=== PATIENT | female | born 1985 | race Caucasian/White ===

== ENCOUNTER 2017-12-09 16:27 | Emergency (ER) | payer MEDICARE ==
[2017-12-09] MEDS ORDERED: PROMETHAZINE 12.5 MG TABLET. PO (17:00)
[2017-12-09 17:18] LABS: URINE HCG POC HCG NEGATIVE (Negative)
[2017-12-09 17:24] LABS: BARBITURATES NEG (NEG); BENZODIAZEPINES POS (NEG); CANNABINOIDS NEG (NEG); COCAINE NEG (NEG); METHADONE POS (NEG); OPIATES NEG (NEG); PHENCYCLIDINE NEG (NEG)
[2017-12-09 17:25] LABS: BILIRUBIN,URINE NEGATIVE (NEG); CLARITY,URINE CLEAR; COLOR,URINE YELLOW; GLUCOSE,URINE >=1000 mg/dL (NEG); NITRITE,URINE NEGATIVE (NEG); PROTEIN,URINE NEGATIVE (NEG-TRACE)
[2017-12-09 17:27] LABS: AMPHETAMINE/METHAMPHETAMINE NEG (NEG); ETHANOL, URINE NEG (NEG)
[2017-12-09 17:31] LABS: AMORPHOUS SEDIMENT,UR PRESENT /HPF; BACTERIA,URINE MODERATE /HPF (0-FEW); RBC,URINE 0 /HPF (0-2); SQUAMOUS EPITHELIAL CELL,UR FEW /LPF; WBC,URINE 20-40 /HPF (0-4)
[2017-12-09] MEDS: PROMETHAZINE IM 25 MG/ML VIAL IM (17:45)
[2017-12-09 18:06] LABS: ADD MAN DIFF? NO
[2017-12-09] MEDS: IV NORMAL SALINE 1000ML BAG 1,000 ML IV ×2 (18:07→19:58)
[2017-12-09 18:08] LABS: BASO % 0 % (0-3); EOS % 1 % (0-3); HEMATOCRIT 43.2 % (36.0-47.0); HEMOGLOBIN 14.5 g/dL (12.0-15.5); LYMPH # 1.4 x10^3/uL (1.0-4.8); LYMPH % 19 % (24-48); MEAN CORPUSCULAR HEMOGLOBIN 27 pg (25-35); MEAN CORPUSCULAR HGB CONC 34 g/dL (31-37); MEAN CORPUSCULAR VOLUME 81 fL (79-100); MONO # 0.5 x10^3/uL (0.0-1.1); MONO % 7 % (0-9); NEUT # 5.5 x10^3uL (1.8-7.7); NEUT % 74 % (31-73); PLATELET COUNT 189 x10^3/uL (140-400); RED BLOOD COUNT 5.36 x10^6/uL (3.50-5.40); RED CELL DISTRIBUTION WIDTH 13.5 % (11.5-14.5); WHITE BLOOD COUNT 7.4 x10^3/uL (4.0-11.0)
[2017-12-09 18:27] LABS: ANION GAP 13 (6-14); BLOOD UREA NITROGEN 7 mg/dL (7-20); BUN/CREATININE RATIO 8 (6-20); CALCIUM 9.1 mg/dL (8.5-10.1); CARBON DIOXIDE 23 mmol/L (21-32); CHLORIDE 92 mmol/L (98-107); CREATININE 0.9 mg/dL (0.6-1.0); GFR 72.1; GLUCOSE 462 mg/dL (70-99); POTASSIUM 3.8 mmol/L (3.5-5.1); SODIUM 128 mmol/L (136-145)
[2017-12-09 18:32] LABS: ALBUMIN 3.1 g/dL (3.4-5.0); ALBUMIN/GLOBULIN RATIO 0.7 (1.0-1.7); ALK PHOS 192 U/L (46-116); ALT (SGPT) 106 U/L (14-59); AST (SGOT) 89 U/L (15-37); TOTAL BILIRUBIN 0.6 mg/dL (0.2-1.0); TOTAL PROTEIN 7.7 g/dL (6.4-8.2)
[2017-12-09] MEDS: ACETAMINOPHEN 500 MG TABLET PO (20:09)
[2017-12-09] MEDS: INSULIN REGULAR 100 UNIT/ML 3ML VIAL. IV (20:13)
== END 2017-12-09 21:22 | disposition home or self-care (01) ==
LOC: ER 21:22
DX: G62.9 Polyneuropathy, unspecified (principal); R11.0 Nausea; E11.9 Type 2 diabetes mellitus without complications; J45.909 Unspecified asthma, uncomplicated; K21.9 Gastro-esophageal reflux disease without esophagitis; G43.909 Migraine, unspecified, not intractable, without status migrainosus; F43.10 Post-traumatic stress disorder, unspecified; Z87.820 Personal history of traumatic brain injury; F17.200 Nicotine dependence, unspecified, uncomplicated; Z88.0 Allergy status to penicillin; Z88.6 Allergy status to analgesic agent
CPT/HCPCS: 36415; 72100; 80053; 80307; 81001; 81025; 85025; 87086; 96372; 96374; 99285-25; J1815; J2550; J7030

== ENCOUNTER 2018-09-13 20:05 | Emergency (ER) | payer SELFPAY ==
[~2018-09-13] VITALS: Ht 167.6 cm; Wt 74.8 kg
[2018-09-13 20:53] VITALS: BP 128/65
[2018-09-13 20:59] LABS: BILIRUBIN,URINE NEGATIVE (NEG); CLARITY,URINE CLEAR; COLOR,URINE YELLOW; NITRITE,URINE NEGATIVE (NEG); PROTEIN,URINE NEGATIVE (NEG-TRACE); UROBILINOGEN,URINE 0.2 mg/dL (0.2 mg/dL)
[2018-09-13 21:05] LABS: SQUAMOUS EPITHELIAL CELL,UR MANY /LPF
[2018-09-13 21:06] LABS: BACTERIA,URINE FEW /HPF (0-FEW); RBC,URINE OCC /HPF (0-2)
[2018-09-13] MEDS ORDERED: SULF1TAB24 PO (21:58)
[2018-09-13] MEDS ORDERED: ONDA4TAB7 PO (21:58)
--- NOTE | 2018-09-13 21:59 | PHYS DOC ---
Past Medical History Past Medical History: Anxiety, Asthma, Diabetes-Type II, GERD, Migraines, UTI Additional Past Medical Histor: Personality disorder, TBI, Broken neck, PTSD (CLAUDIA DOBBINS APRN) Past Surgical History: Hysterectomy, Tonsillectomy Additional Past Surgical Histo: Brain surgery, oral surgery, T&A, vag lesion removed (CLAUDIA DOBBINS APRN) Alcohol Use: None Drug Use: Other Social History Narrative: RECOVERING METH USER (CLAUDIA DOBBINS APRN) Adult General Chief Complaint Chief Complaint: FLANK PAIN HPI HPI Patient is a 33 year old female with history of diabetes2, anxiety, arthritis, who presents to the ED today complaining of dysuria, sharp intermittent 7 out of 10 chronic low back pain for 4 days. Patient denies any fever, she states she's had a couple episodes of vomiting. She is currently at [facility] [place]. (CLAUDIA DOBBINS APRN) Review of Systems Review of Systems Constitutional: Denies fever or chills [] Eyes: Denies change in visual acuity, redness, or eye pain [] HENT: Denies nasal congestion or sore throat [] Respiratory: Denies cough or shortness of breath [] Cardiovascular: No additional information not addressed in HPI [] GI: Reports nausea and vomiting. Denies abdominal pain, bloody stools or diarrhea [] : Reports dysuria, denies hematuria Musculoskeletal: Reports chronic low back pain Integument: Denies rash or skin lesions [] Neurologic: Denies headache, focal weakness or sensory changes [] All other systems were reviewed and found to be within normal limits, except as documented in this note. (CLAUDIA DOBBINS APRN) Allergies Allergies Allergies Coded Allergies Type Severity Reaction Last Updated Verified Penicillins Allergy Intermediate 12/09/17 Yes adhesive Allergy Intermediate 12/09/17 Yes ketorolac Allergy Intermediate 12/09/17 Yes metoclopramide Allergy Intermediate 12/09/17 Yes ondansetron Allergy Intermediate 12/09/17 Yes prochlorperazine Allergy Intermediate 12/09/17 Yes (DEAN FREEDMAN MD) Physical Exam Physical Exam Constitutional: Well developed, well nourished, no acute distress, non-toxic appearance. [] HENT: Normocephalic, atraumatic, bilateral external ears normal, oropharynx moist, no oral exudates, nose normal. [] Eyes: PERRLA, EOMI, conjunctiva normal, no discharge. [] Neck: Normal range of motion, no tenderness, supple, no stridor. [] Cardiovascular:Heart rate regular rhythm, no murmur [] Lungs & Thorax: Bilateral breath sounds clear to auscultation [] Abdomen: Bowel sounds normal, soft, no tenderness, no masses, no pulsatile masses. [] Skin: Warm, dry, no erythema, no rash. [] Back: No tenderness, no CVA tenderness. [] Extremities: No tenderness, no cyanosis, no clubbing, ROM intact, no edema. [] Neurologic: Alert and oriented X 3, normal motor function, normal sensory function, no focal deficits noted. [] Psychologic: Affect normal, judgement normal, mood normal. [] (CLAUDIA DOBBINS APRN) Current Patient Data Vital Signs Vital Signs Date Time Temp Pulse Resp B/P (MAP) Pulse Ox O2 Delivery O2 Flow Rate FiO2 09/13/18 20:53 98.0 72 18 128/65 (86) 96 Room Air 98.0 (DEAN FREEDMAN MD) Lab Values Laboratory Tests Test 09/13/18 20:31 Urine Collection Type Unknown Urine Color Yellow Urine Clarity Clear Urine pH 7.0 Urine Specific [place] 1.020 Urine Protein Negative mg/dL (NEG-TRACE) Urine Glucose (UA) 500 mg/dL (NEG) Urine Ketones (Stick) Negative mg/dL (NEG) Urine Blood Negative (NEG) Urine Nitrite Negative (NEG) Urine Bilirubin Negative (NEG) Urine Urobilinogen Dipstick 0.2 mg/dL (0.2 mg/dL) Urine Leukocyte Esterase Small (NEG) Urine RBC Occ /HPF (0-2) Urine WBC 5-10 /HPF (0-4) Urine Squamous Epithelial Cells Many /LPF Urine Bacteria Few /HPF (0-FEW) Urine Mucus Slight /LPF Microbiology 09/13/18 Urine Culture - Final, Complete 09/13/18 Urine Culture Result 1 (JAMES) - Final, Complete (DEAN FREEDMAN MD) EKG EKG [] (CLAUDIA DOBBINS APRN) Radiology/Procedures Radiology/Procedures [] (CLAUDIA DOBBINS APRN) Course & Med Decision Making Course & Med Decision Making Pertinent Labs and Imaging studies reviewed. (See chart for details) This is a 33-year-old female patient currently in drug rehabilitation center at [facility] presenting to the ED today for chronic low back pain as well as dysuria. Also complained of nausea and vomiting. Symptoms are been going on for 4 days. Urine positive for UTI though it is contaminated considering she is a drug rehabilitation center I will put this patient on Bactrim. Gave her prescription for Zofran. Discharged to back to rehabilitation (CLAUDIA DOBBINS APRN) Course & Med Decision Making Staff Physician Addendum: I was working in the ER during the course of this patient's visit. I was available for consultation as needed, but I was not directly involved in the care of this patient. (DEAN FREEDMAN MD) Dragon Disclaimer Dragon Disclaimer This electronic medical record was generated, in whole or in part, using a voice recognition dictation system. (CLAUDIA DOBBINS APRN) Departure Departure Impression: Primary Impression: Urinary tract infection Additional Impressions: Chronic low back pain Nausea and vomiting Disposition: HOME, SELF-CARE Condition: STABLE Referrals: NO PCP (PCP) follow up with your doctor as needed Patient Instructions: Urinary Tract Infection Additional Instructions: You have urinary tract infection, ensure you complete your antibiotics. You can take Tylenol or Motrin for your back pain. Scripts Ondansetron Hcl (ZOFRAN) 4 Mg Tablet 1 TAB PO Q6HRS, #20 TAB Prov: CLAUDIA DOBBINS APRN 09/13/18 Sulfamethoxazole/Trimethoprim (BACTRIM DS TABLET) 1 Each Tablet 1 TAB PO BID, #6 TAB Prov: CLAUDIA DOBBINS APRN 09/13/18 Problem Qualifiers Primary Impression: Urinary tract infection Urinary tract infection type: site unspecified Hematuria presence: without hematuria Qualified Codes: N39.0 - Urinary tract infection, site not specified Additional Impressions: Chronic low back pain Back pain laterality: bilateral Sciatica presence: without sciatica Qualified Codes: M54.5 - Low back pain; G89.29 - Other chronic pain Nausea and vomiting Vomiting type: unspecified Vomiting Intractability: non-intractable Qualified Codes: R11.2 - Nausea with vomiting, unspecified CLAUDIA DOBBINS APRN Sep 13, 2018 21:59 DEAN FREEDMAN MD Sep 19, 2018 08:11
== END 2018-09-13 22:02 | disposition home or self-care (01) ==
LOC: ER 20:05
DX: N39.0 Urinary tract infection, site not specified (principal); G89.29 Other chronic pain; M54.5 Low back pain; F41.9 Anxiety disorder, unspecified; J45.909 Unspecified asthma, uncomplicated; E11.9 Type 2 diabetes mellitus without complications; K21.9 Gastro-esophageal reflux disease without esophagitis; G43.909 Migraine, unspecified, not intractable, without status migrainosus; F43.10 Post-traumatic stress disorder, unspecified; Z87.440 Personal history of urinary (tract) infections; Z90.710 Acquired absence of both cervix and uterus; Z88.0 Allergy status to penicillin; Z88.8 Allergy status to other drugs, medicaments and biological substances
CPT/HCPCS: 81001; 87086; 99284

== ENCOUNTER → 2019-01-25 | Outpatient (CLI) | payer OTHER ==
[~2019-01-25] MED LIST: ONDA4TAB7 PO; SULF1TAB24 PO
== END | disposition home or self-care (01) ==
LOC: PF 07:59
PROVIDERS: ATTEND Surgery
DX: J45.909 Unspecified asthma, uncomplicated (principal); F17.210 Nicotine dependence, cigarettes, uncomplicated
CPT/HCPCS: 94010

== ENCOUNTER 2019-02-12 22:40 | Emergency (ER) | payer MEDICARE, MEDICAID ==
[~2019-02-12] VITALS: Ht 167.6 cm; Wt 95.3 kg
[2019-02-12] MEDS ORDERED: BUTALB/APAP/CAFEIN 50/325/40MG TABLET. PO ONE (23:00)
[2019-02-12] MEDS ORDERED: PROMETHAZINE 12.5 MG TABLET. PO ONE (23:00)
[2019-02-12] MEDS ORDERED: diphenhydrAMINE 50 MG/ML VIAL IM ONE (23:00)
--- NOTE | 2019-02-12 23:04 | PHYS DOC ---
Past Medical History Past Medical History: Anxiety, Asthma, Diabetes-Type II, GERD, Migraines, UTI Additional Past Medical Histor: Personality disorder, TBI, Broken neck, PTSD Past Surgical History: Hysterectomy, Tonsillectomy Additional Past Surgical Histo: Brain surgery, oral surgery, T&A, vag lesion removed Alcohol Use: None Drug Use: Other Adult General Chief Complaint Chief Complaint: HEADACHE HPI HPI 33-year-old female presents to the emergency Department with complaints of migraine headache area she states she has a history of migraine, takes Topamax and Fioricet. Patient states she's been on a Fioricet �5 days she is well describes being seen at [facility] and receiving DHEA. However this was 2 weeks ago. Patient describes nausea, inability to keep anything down. However she has demonstrated no vomiting in the emergency department today. Patient denies any chest pain, shortness of breath abdominal pain, diarrhea, fever, chills. All other ROS negative unless documented in HPI Review of Systems Review of Systems See Above Current Medications Current Medications Current Medications Medications (Trade) Dose Ordered Sig/Milagros Start Time Stop Time Status Last Admin Dose Admin Acetaminophen/ Butalbital/ Caffeine (Fioricet) 1 tab ONCE ONCE 02/12/19 23:00 02/12/19 23:01 DC 02/12/19 23:13 1 TAB Diphenhydramine HCl (Benadryl) 50 mg 1X ONCE 02/12/19 23:00 02/12/19 23:01 DC 02/12/19 23:13 50 MG Promethazine HCl (Phenergan) 25 mg 1X ONCE 02/12/19 23:00 02/12/19 23:01 DC 02/12/19 23:13 25 MG Allergies Allergies Allergies Coded Allergies Type Severity Reaction Last Updated Verified Penicillins Allergy Intermediate 12/09/17 Yes adhesive Allergy Intermediate 12/09/17 Yes ketorolac Allergy Intermediate 12/09/17 Yes metoclopramide Allergy Intermediate 12/09/17 Yes ondansetron Allergy Intermediate 12/09/17 Yes prochlorperazine Allergy Intermediate 12/09/17 Yes Physical Exam Physical Exam See Above Constitutional: Well developed, well nourished, no acute distress, non-toxic appearance. [] HENT: Normocephalic, atraumatic, bilateral external ears normal, oropharynx moist, no oral exudates, nose normal. [] Eyes: PERRLA, EOMI, conjunctiva normal, no discharge. [] Cardiovascular:Heart rate regular rhythm, no murmur [] Lungs & Thorax: Bilateral breath sounds clear to auscultation [] Abdomen: Bowel sounds normal, soft, no tenderness, no masses, no pulsatile masses. [] Skin: Warm, dry, no erythema, no rash. [] Extremities: No tenderness, no cyanosis, no clubbing, ROM intact, no edema. [] Neurologic: Alert and oriented X 3, no focal deficits noted. [] Psychologic: Patient appears under the influence, states she has multiple allergies to Toradol, Reglan, Zofran Current Patient Data Vital Signs Vital Signs Date Time Temp Pulse Resp B/P (MAP) Pulse Ox O2 Delivery O2 Flow Rate FiO2 02/12/19 22:45 97.7 115 14 144/88 (106) 98 Room Air 97.7 EKG EKG [] Radiology/Procedures Radiology/Procedures [] Course & Med Decision Making Course & Med Decision Making Pertinent Labs and Imaging studies reviewed. (See chart for details) []33-year-old female presents to the emergency Department with complaints of migraine headache area she states she has a history of migraine, takes Topamax and Fioricet. Patient states she's been on a Fioricet �5 days she is well describes being seen at [facility] and receiving DHEA. However this was 2 weeks ago. Patient describes nausea, inability to keep anything down. However she has demonstrated no vomiting in the emergency department today. Patient de nies any chest pain, shortness of breath abdominal pain, diarrhea, fever, chills. Benadryl IM, Phenergan 12.5 mg by mouth, Fioricet one tablet by mouth patient requesting IV dosing of medications, she states her "cocktail is Benadryl, Phenergan, Dilaudid." Explained to the patient that narcotics are not the primary treatment for migraine headaches. Pharmacy does not have IM Phenergan, will plan for by mouth as described previously. Patient received medications, she is requesting to be discharged. Discharge instructions provided. Dragon Disclaimer Dragon Disclaimer This electronic medical record was generated, in whole or in part, using a voice recognition dictation system. Departure Departure Impression: Primary Impression: Migraine headache Additional Impression: Nausea Disposition: HOME, SELF-CARE Condition: STABLE Referrals: NO PCP (PCP) Patient Instructions: Migraine Headache, [id number] Additional Instructions: Recommend follow up with PCP regarding refill of prescription You received bendaryl, phenergan, fiorcet in the ER Continue topamax as scheduled Problem Qualifiers Primary Impression: Migraine headache Migraine type: unspecified Status migrainosus presence: without status migrainosus Intractability: intractable Qualified Codes: G43.919 - Coy christoph, unspecified, intractable, without status migrainosus ALONSO VELIZ MD Feb 12, 2019 23:03
[2019-02-12 23:13] VITALS: BP 124/74
== END 2019-02-12 23:27 | disposition home or self-care (01) ==
LOC: ER 22:40
DX: G43.909 Migraine, unspecified, not intractable, without status migrainosus (principal); J45.909 Unspecified asthma, uncomplicated; E11.9 Type 2 diabetes mellitus without complications; K21.9 Gastro-esophageal reflux disease without esophagitis; Z88.0 Allergy status to penicillin; Z88.6 Allergy status to analgesic agent; Z88.5 Allergy status to narcotic agent; Z88.8 Allergy status to other drugs, medicaments and biological substances
CPT/HCPCS: 96372; 99283; J1200; Q0169

== ENCOUNTER 2019-03-19 13:18 | Emergency (ER) | payer MEDICARE, MEDICAID ==
[~2019-03-19] VITALS: Ht 167.6 cm; Wt 95.3 kg
[2019-03-19 14:43] LABS: BARBITURATES POS (NEG); BENZODIAZEPINES NEG (NEG); CANNABINOIDS NEG (NEG); COCAINE NEG (NEG); METHADONE NEG (NEG); OPIATES POS (NEG); PHENCYCLIDINE NEG (NEG)
[2019-03-19 14:44] LABS: AMPHETAMINE/METHAMPHETAMINE NEG (NEG)
[2019-03-19] MEDS ORDERED: diphenhydrAMINE 50 MG/ML VIAL IVP ONE (14:45)
[2019-03-19] MEDS ORDERED: IV NORMAL SALINE 1000ML BAG 1,000 ML IV ONE (14:45)
[2019-03-19] MEDS ORDERED: NALBUPHINE 10 MG/ML AMPUL. IV PRN (14:45)
[2019-03-19] MEDS ORDERED: SUMAtriptan SUCC 6 MG/0.5 ML VIAL. SQ ONE (14:45)
--- NOTE | 2019-03-19 14:47 | PHYS DOC ---
Past Medical History Past Medical History: Anxiety, Asthma, Diabetes-Type II, GERD, Migraines, UTI Additional Past Medical Histor: Personality disorder, TBI, Broken neck, PTSD Past Surgical History: Hysterectomy, Tonsillectomy Additional Past Surgical Histo: Brain surgery, oral surgery, T&A, vag lesion removed Alcohol Use: None Drug Use: None Adult General Chief Complaint Chief Complaint: HEADACHE HPI HPI Patient is a 33 year old female who presents with migraine headache the last 2 days. Patient states that this feels like her usual migraine headaches. She states the pain is throbbing behind both of her eyes and in her frontal lobe of her head. Patient states [facility] gave her morphine, Phenergan, Benadryl for her headache 2 days ago and it worked. Patient states also Nubain works. Patient states she also has not been able to keep fluids down for the last 2 days. Patient states that she also has photophobia. Review of Systems Review of Systems Eyes: Photophobia. Denies change in visual acuity, redness, or eye pain [] GI: Denies abdominal pain, +nausea, +vomiting, denies bloody stools or diarrhea [] Musculoskeletal: Denies back pain or joint pain [] Neurologic: headache, denies focal weakness or sensory changes [] All other systems were reviewed and found to be within normal limits, except as documented in this note. Current Medications Current Medications Current Medications Medications (Trade) Dose Ordered Sig/Milagros Start Time Stop Time Status Last Admin Dose Admin Diphenhydramine HCl (Benadryl) 25 mg 1X ONCE 03/19/19 14:45 03/19/19 14:49 DC 03/19/19 14:54 25 MG Nalbuphine HCl (Nubain) 2.5 mg 1X PRN 03/19/19 14:45 03/19/19 15:26 2.5 MG Sodium Chloride 1,000 ml @ 1,000 mls/hr 1X ONCE 03/19/19 14:45 03/19/19 15:44 03/19/19 14:53 1,000 MLS/HR Sumatriptan Succinate (Imitrex) 6 mg 1X ONCE 03/19/19 14:45 03/19/19 14:49 DC 03/19/19 14:54 6 MG Allergies Allergies Allergies Coded Allergies Type Severity Reaction Last Updated Verified Penicillins Allergy Intermediate 12/09/17 Yes adhesive Allergy Intermediate 12/09/17 Yes ketorolac Allergy Intermediate 12/09/17 Yes metoclopramide Allergy Intermediate 12/09/17 Yes ondansetron Allergy Intermediate 12/09/17 Yes prochlorperazine Allergy Intermediate 12/09/17 Yes Physical Exam Physical Exam Constitutional: Well developed, well nourished, no acute distress, non-toxic appearance. [] HENT: Normocephalic, atraumatic, bilateral external ears normal, oropharynx moist, no oral exudates, nose normal. [] Eyes: PERRLA, EOMI, conjunctiva normal, no discharge. Photophobia [] Neck: Normal range of motion, no tenderness, supple, no stridor. [] Cardiovascular:Heart rate regular rhythm, no murmur [] Lungs & Thorax: Bilateral breath sounds clear to auscultation [] Abdomen: Bowel sounds normal, soft, no tenderness, no masses, no pulsatile masses. [] Skin: Warm, dry, no erythema, no rash. [] Back: No tenderness, no CVA tenderness. [] Neurologic: Alert and oriented X 3, normal motor function, normal sensory function, no focal deficits noted. [] Psychologic: Affect normal, judgement normal, mood normal. [] Current Patient Data Vital Signs Vital Signs Date Time Temp Pulse Resp B/P (MAP) Pulse Ox O2 Delivery O2 Flow Rate FiO2 03/19/19 15:26 18 98 Room Air 03/19/19 14:26 98.2 96 124/74 (91) 98.2 Lab Values Laboratory Tests Test 03/19/19 14:21 03/19/19 14:25 POC Urine HCG, Qualitative Hcg negative (Negative) Urine Opiates Screen Pos (NEG) Urine Methadone Screen Neg (NEG) Urine Barbiturates Pos (NEG) Urine Phencyclidine Screen Neg (NEG) Urine Amphetamine/Methamphetamine Neg (NEG) Urine Benzodiazepines Screen Neg (NEG) Urine Cocaine Screen Neg (NEG) Urine Cannabinoids Screen Neg (NEG) Urine Ethyl Alcohol Neg (NEG) EKG EKG [] Radiology/Procedures Radiology/Procedures [] Course & Med Decision Making Course & Med Decision Making Alert and oriented. Speaks in full clear sentences. Denies any numbness or tingling or weaknesses. Ambulatory with steady gait. Skin pink warm and dry. Mucous membranes are moist. Abdomen is soft and nontender. PERRLA. Patient rates her pain 10/10 at this time. Patient states all she's been taking at home is Aleve. 1530: Patient states her headache is gone. Patient discharged home. Dragon Disclaimer Kary Disclaimer This electronic medical record was generated, in whole or in part, using a voice recognition dictation system. Departure Departure Impression: Primary Impression: Migraine headache Disposition: HOME, SELF-CARE Condition: STABLE Referrals: UNKNOWN PCP NAME (PCP) Patient Instructions: Migraine Headache Additional Instructions: Follow up with primary care doctor or Neurologist. Problem Qualifiers Primary Impression: Migraine headache Migraine type: unspecified Status migrainosus presence: without status migrainosus Intractability: not intractable Qualified Codes: G43.909 - Migraine, unspecified, not intractable, without status migrainosus QUITA SINGH BURRITO MAKER Mar 19, 2019 14:47
[2019-03-19 15:53] VITALS: BP 131/85
[2019-03-20] MEDS ORDERED: PROM25SU33 RC (18:45)
[2019-03-20] MEDS ORDERED: BUTA1TAB23 PO (18:45)
[2019-04-05] MEDS ORDERED: CODE1CAP8 PO (15:16)
== END 2019-03-19 15:57 | disposition home or self-care (01) ==
LOC: ER 13:18
DX: G43.909 Migraine, unspecified, not intractable, without status migrainosus (principal); R11.2 Nausea with vomiting, unspecified; F41.9 Anxiety disorder, unspecified; J45.909 Unspecified asthma, uncomplicated; E11.9 Type 2 diabetes mellitus without complications; K21.9 Gastro-esophageal reflux disease without esophagitis; Z90.710 Acquired absence of both cervix and uterus; Z90.89 Acquired absence of other organs; Z88.0 Allergy status to penicillin; Z88.8 Allergy status to other drugs, medicaments and biological substances
CPT/HCPCS: 80307; 81025; 96361; 96372; 96374; 96375; 99284; J1200; J2300; J3030; J7030; 99285-25

== ENCOUNTER 2019-03-20 16:21 | Emergency (ER) | payer MEDICARE, MEDICAID ==
[~2019-03-20] VITALS: Ht 167.6 cm; Wt 91.9 kg
[2019-03-20] MEDS ORDERED: IV NORMAL SALINE 1000ML BAG 1,000 ML IV ONE (17:15)
[2019-03-20] MEDS ORDERED: PROMETHAZINE 25 MG SUPP.RECT. PR ONE (17:15)
[2019-03-20] MEDS ORDERED: diphenhydrAMINE 50 MG/ML VIAL IVP ONE (17:15)
[2019-03-20] MEDS ORDERED: DEXAMETHASONE SOD PHOS 20 MG/5 ML VIAL. IV ONE (17:15)
[2019-03-20 18:43] VITALS: BP 138/93
[2019-03-20] MEDS ORDERED: BUTA1TAB23 PO (18:45)
[2019-03-20] MEDS ORDERED: PROM25SU33 RC (18:45)
--- NOTE | 2019-03-20 18:46 | PHYS DOC ---
Past Medical History Past Medical History: Anxiety, Asthma, Diabetes-Type II, GERD, Migraines, UTI Additional Past Medical Histor: Personality disorder, TBI, Broken neck, PTSD Past Surgical History: Hysterectomy, Tonsillectomy Additional Past Surgical Histo: Brain surgery, oral surgery, T&A, vag lesion removed Additional Information: 05/25 ppd Alcohol Use: None Drug Use: None Adult General Chief Complaint Chief Complaint: HEADACHE HPI HPI Patient is a 33 year old female, accompanied by her spouse, who presents to the emergency department with complaints of a headache for the last 3 days. Patient states she was seen here yesterday and was given Imitrex, Nubain, and Benadryl. Patient states that the medication helps for approximately 3 hours. Patient states she has had her migraine headache mostly behind her right eye all day today. She also reports nausea and vomiting 3 today. Patient denies any sensitivity to lights however states that she has been seeing flashes of light. She has an appointment on April 24 with her neurologist and reports that she recently had an MRI because of the increased and headaches. Currently she rates her pain a 10 out of 10 on the pain scale, there are no alleviating factors. Review of Systems Review of Systems Constitutional: Denies fever or chills [] Eyes: Denies change in visual acuity, reports seeing bright flashes of light. HENT: Denies nasal congestion or sore throat [] Respiratory: Denies cough or shortness of breath [] Cardiovascular: No additional information not addressed in HPI [] GI: Denies abdominal pain, or diarrhea; see history of present illness : Denies dysuria or hematuria [] Musculoskeletal: Denies back pain or joint pain [] Integument: Denies rash or skin lesions [] Neurologic: See history of present illness Complete systems were reviewed and found to be within normal limits, except as documented in this note. Current Medications Current Medications Current Medications Medications (Trade) Dose Ordered Sig/Milagros Start Time Stop Time Status Last Admin Dose Admin Dexamethasone Sodium Phosphate (Decadron) 10 mg 1X ONCE 03/20/19 17:15 03/20/19 17:24 DC 03/20/19 17:52 10 MG Diphenhydramine HCl (Benadryl) 25 mg 1X ONCE 03/20/19 17:15 03/20/19 17:24 DC 03/20/19 17:49 25 MG Promethazine HCl (Phenergan Supp) 25 mg 1X ONCE 03/20/19 17:15 03/20/19 17:24 DC 03/20/19 17:55 25 MG Sodium Chloride 1,000 ml @ 1,000 mls/hr 1X ONCE 03/20/19 17:15 03/20/19 18:14 DC 03/20/19 17:47 1,000 MLS/HR Allergies Allergies Allergies Coded Allergies Type Severity Reaction Last Updated Verified Penicillins Allergy Intermediate 12/09/17 Yes adhesive Allergy Intermediate 12/09/17 Yes ketorolac Allergy Intermediate 12/09/17 Yes metoclopramide Allergy Intermediate 12/09/17 Yes ondansetron Allergy Intermediate 12/09/17 Yes prochlorperazine Allergy Intermediate 12/09/17 Yes Physical Exam Physical Exam Constitutional: Well developed, well nourished, no acute distress, non-toxic appearance. [] HENT: Normocephalic, atraumatic, bilateral external ears normal, oropharynx moist, no oral exudates, nose normal. [] Eyes: PERRLA, EOMI, conjunctiva normal, no discharge. [] Neck: Normal range of motion, no stridor. [] Cardiovascular:Heart rate regular rhythm, no murmur [] Lungs & Thorax: Respirations even and unlabored, no retractions, no respiratory distress Skin: Warm, dry, no erythema, no rash. [] Extremities: No cyanosis, ROM intact Neurologic: Alert and oriented X 3, no focal deficits noted. [] Psychologic: Affect normal, judgement normal, mood normal. [] Current Patient Data Vital Signs Vital Signs Date Time Temp Pulse Resp B/P (MAP) Pulse Ox O2 Delivery O2 Flow Rate FiO2 03/20/19 18:43 106 18 96 03/20/19 16:45 98.7 142/86 (104) Room Air 98.7 EKG EKG [] Radiology/Procedures Radiology/Procedures [] Course & Med Decision Making Course & Med Decision Making Pertinent Labs and Imaging studies reviewed. (See chart for details) dx: Recurrent migraine headache Patient was given 25 mg of Phenergan per rectum, 1 L of normal saline, 25 mg of IV Benadryl, and 10 mg of Decadron IV. Patient reported that her headache went away completely. Prescriptions written for Phenergan suppositories and Fioricet to take as needed for headaches. Patient encouraged follow-up with her neurologist as planned, return to the ER if symptoms worsen. Patient verbalized an understanding of home care, medications, follow-up, and return to ED instructions and was in agreement with the plan of care. [] Dragon Disclaimer Dragon Disclaimer This electronic medical record was generated, in whole or in part, using a voice recognition dictation system. Departure Departure Impression: Primary Impression: Migraine headache Additional Impression: Nausea Disposition: 01 HOME, SELF-CARE Condition: STABLE Referrals: UNKNOWN PCP NAME (PCP) Patient Instructions: Recurrent Migraine Headache, [id number] Additional Instructions: Fill the prescriptions and use them as directed. Home to rest in a cool, dark room. Follow-up with your neurologist as planned, return to the ER if your symptoms worsen. Scripts Butalb/Acetaminophen/Caffeine ([id number] 50-325-40) 1 Each Tablet 1-2 EACH PO Q4HRS PRN for PAIN MDD 6 tabs for 3 Days, #18 TAB 0 Refills Prov: LANNY WATERS APRN 03/20/19 Promethazine Hcl (PROMETHAZINE HCL) 25 Mg Supp.rect 25 MG RC Q6H PRN for NAUSEA/VOMITING for 3 Days, #12 SUPP.RECT 0 Refills Prov: LANNY WATERS APRN 03/20/19 Problem Qualifiers Primary Impression: Migraine headache Migraine type: unspecified Status migrainosus presence: without status migrainosus Intractability: not intractable Qualified Codes: G43.909 - Migraine, unspecified, not intractable, without status migrainosus LANNY WATERS APRN Mar 20, 2019 18:46
== END 2019-03-20 18:50 | disposition home or self-care (01) ==
LOC: ER 16:21
DX: G43.909 Migraine, unspecified, not intractable, without status migrainosus (principal); R11.2 Nausea with vomiting, unspecified; F41.9 Anxiety disorder, unspecified; J45.909 Unspecified asthma, uncomplicated; E11.9 Type 2 diabetes mellitus without complications; K21.9 Gastro-esophageal reflux disease without esophagitis; F17.200 Nicotine dependence, unspecified, uncomplicated; Z90.710 Acquired absence of both cervix and uterus; Z90.89 Acquired absence of other organs; Z88.0 Allergy status to penicillin; Z88.8 Allergy status to other drugs, medicaments and biological substances
CPT/HCPCS: 96361; 96374; 96375; 99284; J1100; J1200; J7030

== ENCOUNTER 2019-04-02 01:27 | Emergency (ER) | payer MEDICARE, MEDICAID ==
[~2019-04-02] VITALS: Ht 170.2 cm; Wt 91.6 kg
[~2019-04-02 01:27] MED LIST changes: +BUTA1TAB23 PO; +PROM25SU33 RC
--- NOTE | 2019-04-02 01:53 | PHYS DOC ---
Past Medical History Past Medical History: Anxiety, Asthma, Diabetes-Type II, GERD, Migraines, UTI Additional Past Medical Histor: Personality disorder, TBI, Broken neck, PTSD Past Surgical History: Hysterectomy, Tonsillectomy Additional Past Surgical Histo: Brain surgery, oral surgery, T&A, vag lesion removed Alcohol Use: None Drug Use: None Adult General Chief Complaint Chief Complaint: ABDOMINAL PAIN HPI HPI Patient is a 33-year-old female who presents with complaint of left-sided abdominal pain that started about 2 days ago. Patient states that pain has been waxing and waning but has been progressively getting worse over time. She states the pain is worsened with deep breathing, movement and walking. She rates pain at an 8 out of 10. She states that she has been having some nausea and vomiting associated with the pain. She denies any diarrhea. She also denies any fever. Patient states that nothing is improving the pain. She denies any radiation of the pain.[] Review of Systems Review of Systems Constitutional: Denies fever or chills [] Respiratory: Denies cough or shortness of breath [] Cardiovascular: No additional information not addressed in HPI [] GI: Complains of abdominal pain with nausea and vomiting. Denies diarrhea [] : Denies dysuria or hematuria [] Integument: Denies rash or skin lesions [] Neurologic: Denies headache, focal weakness or sensory changes [] All other systems were reviewed and found to be within normal limits, except as documented in this note. Current Medications Current Medications Current Medications Medications (Trade) Dose Ordered Sig/Milagros Start Time Stop Time Status Last Admin Dose Admin Diphenhydramine HCl (Benadryl) 25 mg 1X ONCE 04/02/19 02:00 04/02/19 02:01 DC 04/02/19 03:15 25 MG Info (CONTRAST GIVEN -- Rx MONITORING) 1 each PRN DAILY PRN 04/02/19 03:45 04/04/19 03:44 Insulin Human Regular (HumuLIN R VIAL) 12 unit 1X ONCE 04/02/19 03:30 04/02/19 03:31 DC 04/02/19 03:59 12 UNIT Iohexol (Omnipaque 300 Mg/ml) 60 ml 1X ONCE 04/02/19 04:00 04/02/19 04:01 DC 04/02/19 03:58 60 ML Morphine Sulfate (Morphine Sulfate) 2 mg 1X ONCE 04/02/19 04:45 04/02/19 04:46 UNV Promethazine HCl (Phenergan) 25 mg 1X ONCE 04/02/19 02:00 04/02/19 02:01 DC 04/02/19 03:14 25 MG Sodium Chloride 1,000 ml @ 1,000 mls/hr Q1H 04/02/19 02:00 04/02/19 02:59 DC 04/02/19 03:14 1,000 MLS/HR Allergies Allergies Allergies Coded Allergies Type Severity Reaction Last Updated Verified Penicillins Allergy Intermediate 12/09/17 Yes adhesive Allergy Intermediate 12/09/17 Yes ketorolac Allergy Intermediate 12/09/17 Yes metoclopramide Allergy Intermediate 12/09/17 Yes ondansetron Allergy Intermediate 12/09/17 Yes prochlorperazine Allergy Intermediate 12/09/17 Yes Physical Exam Physical Exam Constitutional: Well developed, well nourished, no acute distress, non-toxic appearance. [] HENT: Normocephalic, atraumatic, bilateral external ears normal, oropharynx moist, no oral exudates, nose normal. [] Eyes: PERRLA, EOMI, conjunctiva normal, no discharge. [] Neck: Normal range of motion, no tenderness, supple, no stridor. [] Cardiovascular: Regular rate and rhythm[] Lungs & Thorax: Bilateral breath sounds clear to auscultation [] Abdomen: Bowel sounds normal, soft, with moderate left mid abdominal tenderness. [] Skin: Warm, dry, no erythema, no rash. [] Extremities: No tenderness, no cyanosis, no clubbing, ROM intact. [] Neurologic: Alert and oriented X 3, no focal deficits noted. [] Current Patient Data Vital Signs Vital Signs Date Time Temp Pulse Resp B/P (MAP) Pulse Ox O2 Delivery O2 Flow Rate FiO2 04/02/19 04:50 16 93 04/02/19 04:22 Room Air 04/02/19 01:35 97.8 117 128/81 (97) 97.8 Lab Values Laboratory Tests Test 04/02/19 02:00 04/02/19 02:52 04/02/19 04:47 Urine Collection Type Unknown Urine Color Yellow Urine Clarity Clear Urine pH 7.0 Urine Specific [place] >=1.030 Urine Protein Negative mg/dL (NEG-TRACE) Urine Glucose (UA) >=1000 mg/dL (NEG) Urine Ketones (Stick) Negative mg/dL (NEG) Urine Blood Negative (NEG) Urine Nitrite Negative (NEG) Urine Bilirubin Negative (NEG) Urine Urobilinogen Dipstick 0.2 mg/dL (0.2 mg/dL) Urine Leukocyte Esterase Negative (NEG) Urine RBC 0 /HPF (0-2) Urine WBC 5-10 /HPF (0-4) Urine Squamous Epithelial Cells Mod /LPF Urine Bacteria 0 /HPF (0-FEW) Urine Opiates Screen Neg (NEG) Urine Methadone Screen Neg (NEG) Urine Barbiturates Neg (NEG) Urine Phencyclidine Screen Neg (NEG) Urine Amphetamine/Methamphetamine Neg (NEG) Urine Benzodiazepines Screen Pos (NEG) Urine Cocaine Screen Neg (NEG) Urine Cannabinoids Screen Neg (NEG) Urine Ethyl Alcohol Neg (NEG) White Blood Count 8.4 x10^3/uL (4.0-11.0) Red Blood Count 5.06 x10^6/uL (3.50-5.40) Hemoglobin 13.0 g/dL (12.0-15.5) Hematocrit 40.5 % (36.0-47.0) Mean Corpuscular Volume 80 fL (79-100) Mean Corpuscular Hemoglobin 26 pg (25-35) Mean Corpuscular Hemoglobin Concent 32 g/dL (31-37) Red Cell Distribution Width 14.2 % (11.5-14.5) Platelet Count 176 x10^3/uL (140-400) Neutrophils (%) (Auto) 59 % (31-73) Lymphocytes (%) (Auto) 33 % (24-48) Monocytes (%) (Auto) 6 % (0-9) Eosinophils (%) (Auto) 2 % (0-3) Basophils (%) (Auto) 1 % (0-3) Neutrophils # (Auto) 4.9 x10^3/uL (1.8-7.7) Lymphocytes # (Auto) 2.8 x10^3/uL (1.0-4.8) Monocytes # (Auto) 0.5 x10^3/uL (0.0-1.1) Eosinophils # (Auto) 0.1 x10^3/uL (0.0-0.7) Basophils # (Auto) 0.0 x10^3/uL (0.0-0.2) Sodium Level 132 mmol/L (136-145) L Potassium Level 4.4 mmol/L (3.5-5.1) Chloride Level 97 mmol/L (98-107) L Carbon Dioxide Level 23 mmol/L (21-32) Anion Gap 12 (6-14) Blood Urea Nitrogen 15 mg/dL (7-20) Creatinine 1.1 mg/dL (0.6-1.0) H Estimated GFR (Cockcroft-Gault) 56.9 BUN/Creatinine Ratio 14 (6-20) Glucose Level 549 mg/dL (70-99) *H Calcium Level 9.2 mg/dL (8.5-10.1) Total Bilirubin 0.2 mg/dL (0.2-1.0) Aspartate Amino Transferase (AST) 26 U/L (15-37) Alanine Aminotransferase (ALT) 31 U/L (14-59) Alkaline Phosphatase 156 U/L (46-116) H Total Protein 7.1 g/dL (6.4-8.2) Albumin 3.1 g/dL (3.4-5.0) L Albumin/Globulin Ratio 0.8 (1.0-1.7) L Lipase 180 U/L (73-393) Glucose (Fingerstick) 225 mg/dL (70-99) H Laboratory Tests 04/02/19 02:52 Laboratory Tests 04/02/19 02:52 EKG EKG [] Radiology/Procedures Radiology/Procedures [] Impressions: PROCEDURE: CT ABD PELV W/ IV CONTRST ONLY CT ABD PELV W/ IV CONTRST ONLY History: Abdominal pain. Technique: After the administration of intravenous contrast, CT imaging was performed of the abdomen and pelvis. Multiplanar images are reviewed. Exposure: One or more of the following individualized dose reduction techniques were utilized for this examination: 1. Automated exposure control 2. Adjustment of the mA and/or kV according to patient size 3. Use of iterative reconstruction technique. Comparison: None Findings: Lower chest: No consolidation or pleural effusion. Abdomen and pelvis: Hepatic steatosis. The spleen, adrenal glands, and gallbladder are unremarkable. Mild edematous appearance of the pancreas. No fluid collections. No biliary ductal dilatation. Lobulated appearance of the bilateral kidneys with cortical defects. Nonobstructing bilateral renal calculi. No hydronephrosis. Mildly distended urinary bladder. Mild colonic diverticulosis. Normal appendix. No evidence of bowel obstruction. No pathologic adenopathy. Prior hysterectomy. No ascites. Bones: No pathologic osseous lesions. Impression: 1. Mild edematous appearance of the pancreas. Recommend correlation with lipase. 2. Nonobstructing bilateral renal calculi. 3. Lobulated bilateral kidneys with cortical defects, may relate to prior infection or infarct. 4. Prior hysterectomy. Electronically signed by: Julio Tubbs DO (04/02/2019 4:06 AM) [facility] Course & Med Decision Making Course & Med Decision Making Pertinent Labs and Imaging studies reviewed. (See chart for details) [] Dragon Disclaimer Dragon Disclaimer This electronic medical record was generated, in whole or in part, using a voice recognition dictation system. Departure Departure Impression: Primary Impression: Left sided abdominal pain Additional Impression: Type 2 diabetes mellitus with hyperglycemia Disposition: HOME, SELF-CARE Condition: STABLE Referrals: UNKNOWN PCP NAME (PCP) Patient Instructions: Abdominal Pain, Hyperglycemia Scripts Ondansetron Hcl (ZOFRAN) 4 Mg Tablet 4 MG PO PRN TID PRN for NAUSEA, #15 TAB nausea/vomiting Prov: KENIA TO Jr., DO 04/02/19 Hydrocodone/Apap 5-325 (NORCO 5-325 TABLET) 1 Each Tablet 1 EACH PO PRN Q6HRS PRN for PAIN, #10 as needed for pain Prov: KENIA TO Jr., DO 04/02/19 Problem Qualifiers Additional Impression: Type 2 diabetes mellitus with hyperglycemia Diabetes mellitus long term acute care registered nurse insulin use: unspecified long term acute care registered nurse insulin use status Qualified Codes: E11.65 - Type 2 diabetes mellitus with hyperglycemia KENIA TO Jr., DO Apr 02, 2019 01:52
[2019-04-02] MEDS ORDERED: IV NORMAL SALINE 1000ML BAG 1,000 ML IV SCH (02:00)
[2019-04-02] MEDS ORDERED: diphenhydrAMINE 50 MG/ML VIAL IVP ONE (02:00)
[2019-04-02] MEDS ORDERED: PROMETHAZINE 12.5 MG TABLET. PO ONE (02:00)
[2019-04-02 02:09] LABS: BILIRUBIN,URINE NEGATIVE (NEG); CLARITY,URINE CLEAR; COLOR,URINE YELLOW; NITRITE,URINE NEGATIVE (NEG); PROTEIN,URINE NEGATIVE (NEG-TRACE); UROBILINOGEN,URINE 0.2 mg/dL (0.2 mg/dL)
[2019-04-02 02:13] LABS: BACTERIA,URINE 0 /HPF (0-FEW); RBC,URINE 0 /HPF (0-2); SQUAMOUS EPITHELIAL CELL,UR MOD /LPF
[2019-04-02 02:16] LABS: BARBITURATES NEG (NEG); BENZODIAZEPINES POS (NEG); CANNABINOIDS NEG (NEG); COCAINE NEG (NEG); METHADONE NEG (NEG); OPIATES NEG (NEG); PHENCYCLIDINE NEG (NEG)
[2019-04-02 02:17] LABS: AMPHETAMINE/METHAMPHETAMINE NEG (NEG)
[2019-04-02 03:03] LABS: BASO % 1 % (0-3); EOS # 0.1 x10^3/uL (0.0-0.7); EOS % 2 % (0-3); HEMATOCRIT 40.5 % (36.0-47.0); LYMPH # 2.8 x10^3/uL (1.0-4.8); LYMPH % 33 % (24-48); MEAN CORPUSCULAR HEMOGLOBIN 26 pg (25-35); MEAN CORPUSCULAR HGB CONC 32 g/dL (31-37); MEAN CORPUSCULAR VOLUME 80 fL (79-100); MONO # 0.5 x10^3/uL (0.0-1.1); MONO % 6 % (0-9); NEUT # 4.9 x10^3/uL (1.8-7.7); NEUT % 59 % (31-73); PLATELET COUNT 176 x10^3/uL (140-400); RED BLOOD COUNT 5.06 x10^6/uL (3.50-5.40); RED CELL DISTRIBUTION WIDTH 14.2 % (11.5-14.5); WHITE BLOOD COUNT 8.4 x10^3/uL (4.0-11.0)
[2019-04-02 03:16] LABS: ALBUMIN 3.1 g/dL (3.4-5.0); ALBUMIN/GLOBULIN RATIO 0.8 (1.0-1.7); CALCIUM 9.2 mg/dL (8.5-10.1); CREATININE 1.1 mg/dL (0.6-1.0); GFR 56.9; POTASSIUM 4.4 mmol/L (3.5-5.1); TOTAL BILIRUBIN 0.2 mg/dL (0.2-1.0); TOTAL PROTEIN 7.1 g/dL (6.4-8.2)
[2019-04-02] MEDS: MORPHINE SULFATE 4 MG/ML VIAL. IV/SQ PRN ×3 (03:16→04:54)
[2019-04-02] MEDS ORDERED: INSULIN REGULAR 100 UNIT/ML 3ML VIAL. IV ONE (03:30)
[2019-04-02] MEDS ORDERED: CONTRAST GIVEN. MC PRN (03:45)
[2019-04-02] MEDS ORDERED: IOHEXOL 300 MG/ML 100ML VIAL. IV ONE (04:00)
--- NOTE | 2019-04-02 04:09 | RAD ---
CT ABD PELV W/ IV CONTRST ONLY History: Abdominal pain. Technique: After the administration of intravenous contrast, CT imaging was performed of the abdomen and pelvis. Multiplanar images are reviewed. Exposure: One or more of the following individualized dose reduction techniques were utilized for this examination: 1. Automated exposure control 2. Adjustment of the mA and/or kV according to patient size 3. Use of iterative reconstruction technique. Comparison: None Findings: Lower chest: No consolidation or pleural effusion. Abdomen and pelvis: Hepatic steatosis. The spleen, adrenal glands, and gallbladder are unremarkable. Mild edematous appearance of the pancreas. No fluid collections. No biliary ductal dilatation. Lobulated appearance of the bilateral kidneys with cortical defects. Nonobstructing bilateral renal calculi. No hydronephrosis. Mildly distended urinary bladder. Mild colonic diverticulosis. Normal appendix. No evidence of bowel obstruction. No pathologic adenopathy. Prior hysterectomy. No ascites. Bones: No pathologic osseous lesions. Impression: 1. Mild edematous appearance of the pancreas. Recommend correlation with lipase. 2. Nonobstructing bilateral renal calculi. 3. Lobulated bilateral kidneys with cortical defects, may relate to prior infection or infarct. 4. Prior hysterectomy. Electronically signed by: Julio Tubbs DO (04/02/2019 4:06 AM) [facility]
[2019-04-02] MEDS ORDERED: HYDR-3164 PO (04:58)
[2019-04-02] MEDS ORDERED: ONDA4TAB7 PO (04:58)
[2019-04-02] MEDS ORDERED: MORPHINE SULFATE 2 MG/ML VIAL. IV ONE (05:00)
[2019-04-02 05:17] VITALS: BP 141/78
[2019-04-02] MEDS ORDERED: PROM25TA10 PO (05:17)
[2019-04-05] MEDS ORDERED: CODE1CAP8 PO (15:16)
== END 2019-04-02 05:25 | disposition home or self-care (01) ==
LOC: ER 01:27
DX: R10.9 Unspecified abdominal pain (principal); R11.2 Nausea with vomiting, unspecified; E11.65 Type 2 diabetes mellitus with hyperglycemia; J45.909 Unspecified asthma, uncomplicated; K21.9 Gastro-esophageal reflux disease without esophagitis; G43.909 Migraine, unspecified, not intractable, without status migrainosus; Z90.710 Acquired absence of both cervix and uterus; Z88.0 Allergy status to penicillin; Z88.5 Allergy status to narcotic agent; Z88.6 Allergy status to analgesic agent; Z88.8 Allergy status to other drugs, medicaments and biological substances
CPT/HCPCS: 36415; 74177; 80053; 80307; 81001; 82962; 83690; 85025; 87086; 96361; 96374; 96375; 96376; 99285; J1200; J1815; J2270; J7030; Q0169; Q9967

== ENCOUNTER 2019-04-08 03:01 | Emergency (ER) | payer MEDICARE, MEDICAID ==
[~2019-04-08] VITALS: Ht 167.6 cm; Wt 95.3 kg
[~2019-04-08 03:01] MED LIST changes: +CODE1CAP8 PO; +HYDR-3164 PO; +PROM25TA10 PO
[2019-04-08] MEDS ORDERED: diphenhydrAMINE 50 MG/ML VIAL IVP ONE (04:15)
[2019-04-08] MEDS ORDERED: IV NORMAL SALINE 1000ML BAG 1,000 ML IV ONE (04:15)
[2019-04-08] MEDS ORDERED: PROM25TA10 PO (04:52)
--- NOTE | 2019-04-08 04:53 | PHYS DOC ---
Past Medical History Past Medical History: Anxiety, Asthma, Diabetes-Type II, GERD, Migraines, UTI Additional Past Medical Histor: Personality disorder, TBI, Broken neck, PTSD Past Surgical History: Hysterectomy, Tonsillectomy Additional Past Surgical Histo: Brain surgery, oral surgery, T&A, vag lesion removed Alcohol Use: None Drug Use: None Adult General Chief Complaint Chief Complaint: NAUSEA/VOMITING/DIARRHA HPI HPI Patient is a 33 year old female who presented to ER today for evaluation of headache, dizziness, unsteady gait, slurred speech for the last 2 days. Patient has history of migraine headache, however this headache is a little bit different. Patient has history of traumatic brain injury, neck injury as well. She is on Topamax and soma for her headache. She had taken all this medication but did not get better so she came here for evaluation. Patient has been evaluated in this emergency department multiple times for the same in the past 3 months. She has had extensive workup including lab and CT imaging.[] Review of Systems Review of Systems Review symptoms as prescribed. All other systems were reviewed and found to be within normal limits, except as documented in this note. Current Medications Current Medications Current Medications Medications (Trade) Dose Ordered Sig/Milagros Start Time Stop Time Status Last Admin Dose Admin Diphenhydramine HCl (Benadryl) 50 mg 1X ONCE 04/08/19 04:15 04/08/19 04:38 DC 04/08/19 04:30 50 MG Sodium Chloride 1,000 ml @ 1,000 mls/hr 1X ONCE 04/08/19 04:15 04/08/19 05:14 04/08/19 04:30 1,000 MLS/HR Allergies Allergies Allergies Coded Allergies Type Severity Reaction Last Updated Verified Penicillins Allergy Intermediate 12/09/17 Yes adhesive Allergy Intermediate 12/09/17 Yes ketorolac Allergy Intermediate 12/09/17 Yes metoclopramide Allergy Intermediate 12/09/17 Yes ondansetron Allergy Intermediate 12/09/17 Yes prochlorperazine Allergy Intermediate 12/09/17 Yes Physical Exam Physical Exam Constitutional: Well developed, well nourished, no acute distress, non-toxic appearance. [] HENT: Normocephalic, central forehead surgical scar bilateral external ears normal, oropharynx moist, no oral exudates, nose normal. [] Eyes: PERRLA, EOMI, conjunctiva normal. [] Neck: Normal range of motion, no tenderness, supple, no stridor. [] Cardiovascular:Heart rate regular rhythm, no murmur [] Lungs & Thorax: Bilateral breath sounds clear to auscultation. [] Abdomen: Bowel sounds normal, soft, no tenderness. [] Skin: Warm, dry, no erythema, no rash. [] Back: No tenderness, no CVA tenderness. [] Extremities: No tenderness, no cyanosis, no clubbing, ROM intact, no edema. [] Neurologic: Alert and oriented X 3, mild dysarthria, cranial nerves II through XII otherwise intact. Normal motor function, normal sensory function, no focal deficits noted. [] Psychologic: Affect normal, judgement normal, mood normal. [] Current Patient Data Vital Signs Vital Signs Date Time Temp Pulse Resp B/P (MAP) Pulse Ox O2 Delivery O2 Flow Rate FiO2 04/08/19 04:45 94 18 115/68 (84) 97 Room Air 04/08/19 03:10 98.0 98.0 EKG EKG [] Radiology/Procedures Radiology/Procedures [] Course & Med Decision Making Course & Med Decision Making Pertinent Labs and Imaging studies reviewed. (See chart for details) [Typical migraine-like headache. Fluids and Benadryl given. Recommendations are for supportive care with PCP/neurology follow-up for chronic management.] Dragon Disclaimer Dragon Disclaimer This electronic medical record was generated, in whole or in part, using a voice recognition dictation system. Departure Departure Impression: Primary Impression: Migraine headache Disposition: HOME, SELF-CARE Condition: STABLE Referrals: SALINA DE ANDA (PCP) Patient Instructions: Recurrent Migraine Headache, [id number] Additional Instructions: Please continue home medications and follow-up with your PCP and/or neurologist for further management of migraine suppression Scripts Promethazine Hcl (PROMETHAZINE HCL) 25 Mg Tablet 1 TAB PO PRN Q6HRS, #10 TAB Prov: COCO ALBERTO DO 04/08/19 COCO ALBERTO DO Apr 08, 2019 04:52
[2019-04-08 05:15] VITALS: BP 110/61
== END 2019-04-08 05:25 | disposition home or self-care (01) ==
LOC: ER 03:01
DX: G43.909 Migraine, unspecified, not intractable, without status migrainosus (principal); R42 Dizziness and giddiness; F41.9 Anxiety disorder, unspecified; J45.909 Unspecified asthma, uncomplicated; E11.9 Type 2 diabetes mellitus without complications; K21.9 Gastro-esophageal reflux disease without esophagitis; F43.10 Post-traumatic stress disorder, unspecified; Z98.890 Other specified postprocedural states; Z88.0 Allergy status to penicillin; Z88.5 Allergy status to narcotic agent; Z88.6 Allergy status to analgesic agent; Z88.8 Allergy status to other drugs, medicaments and biological substances
CPT/HCPCS: 96361; 96374; 99284; J1200; J7030

== ENCOUNTER 2019-04-08 11:13 | Emergency (ER) | payer MEDICARE, MEDICAID ==
[~2019-04-08] VITALS: Ht 167.6 cm; Wt 95.3 kg
[2019-04-08 11:21] VITALS: BP 160/83
[2019-04-08] MEDS ORDERED: LIDOCAINE 1% Multi-Dose 20 ML VIAL. INJ ONE (12:15)
[2019-04-08] MEDS ORDERED: diphenhydrAMINE 50 MG/ML VIAL IM ONE (12:30)
--- NOTE | 2019-04-08 12:49 | PHYS DOC ---
Past Medical History Past Medical History: Anxiety, Asthma, Diabetes-Type II, GERD, Migraines, UTI Additional Past Medical Histor: Personality disorder, TBI, Broken neck, PTSD Past Surgical History: Hysterectomy, Tonsillectomy Additional Past Surgical Histo: Brain surgery, oral surgery, T&A, vag lesion removed Alcohol Use: None Drug Use: None Adult General Chief Complaint Chief Complaint: HEADACHE HPI HPI Patient is a 33 year old female patient with history of anxiety, asthma, type 2 diabetes and migraine headache who presents with headache. Patient was discharged from hospital this morning because of intractable migraine headache and complaining of continued to have headaches since she was discharged from hospital for the last few hours as a constant throbbing frontal pain with nausea, 2 episodes of vomiting and photophobia like her previous episodes of migraine headache. She had rated her pain 8/10. Patient denies fever and chills, focal neuro deficit, chest pain and shortness of breath, . Review of Systems Review of Systems Constitutional: Denies fever or chills [] Eyes: Denies change in visual acuity, redness, or eye pain [] HENT: Denies nasal congestion or sore throat [] Respiratory: Denies cough or shortness of breath [] Cardiovascular: No additional information not addressed in HPI [] GI: Denies abdominal jennifer, bloody stools or diarrhea, reports nausea and vomiting [] : Denies dysuria or hematuria [] Musculoskeletal: Denies back pain or joint pain [] Integument: Denies rash or skin lesions [] Neurologic: Denies , focal weakness or sensory changes , reports headache[] Endocrine: Denies polyuria or polydipsia [] All other systems were reviewed and found to be within normal limits, except as documented in this note. Current Medications Current Medications Current Medications Medications (Trade) Dose Ordered Sig/Milagros Start Time Stop Time Status Last Admin Dose Admin Diphenhydramine HCl (Benadryl) 50 mg 1X ONCE 04/08/19 12:30 04/08/19 12:31 DC 04/08/19 12:35 50 MG Lidocaine HCl (Lidocaine 1% 20ml Vial) 20 ml 1X ONCE 04/08/19 12:15 04/08/19 12:17 DC 04/08/19 12:18 20 ML Allergies Allergies Allergies Coded Allergies Type Severity Reaction Last Updated Verified Penicillins Allergy Intermediate 12/09/17 Yes adhesive Allergy Intermediate 12/09/17 Yes ketorolac Allergy Intermediate 12/09/17 Yes metoclopramide Allergy Intermediate 12/09/17 Yes ondansetron Allergy Intermediate 12/09/17 Yes prochlorperazine Allergy Intermediate 12/09/17 Yes Physical Exam Physical Exam Constitutional: Well developed, well nourished, mild distress, non-toxic appearance. [] HENT: Normocephalic, atraumatic, bilateral external ears normal, oropharynx moist, no oral exudates, nose normal. [] Eyes: PERRLA, EOMI, conjunctiva normal, no discharge. [] Neck: Normal range of motion, no tenderness, supple, no stridor. [] Cardiovascular:Heart rate regular rhythm, no murmur [] Lungs & Thorax: Bilateral breath sounds clear to auscultation [] Abdomen: Bowel sounds normal, soft, no tenderness, no masses, no pulsatile masses. [] Skin: Warm, dry, no erythema, no rash. [] Back: No tenderness, no CVA tenderness. [] Extremities: No tenderness, no cyanosis, no clubbing, ROM intact, no edema. [] Neurologic: Alert and oriented X 3, normal motor function, normal sensory function, no focal deficits noted. [] Psychologic: Affect normal, judgement normal, mood normal. [] Current Patient Data Vital Signs Vital Signs Date Time Temp Pulse Resp B/P (MAP) Pulse Ox O2 Delivery O2 Flow Rate FiO2 04/08/19 11:21 98.1 104 16 160/83 (108) 96 Room Air 98.1 EKG EKG [] Radiology/Procedures Radiology/Procedures [] Course & Med Decision Making Course & Med Decision Making Evaluation of patient in ER showed 33-year-old female patient with history of migraine headaches and recent hospitalization complaining of migraine headache since she was discharged from hospital this morning for the same problem. Patient had unremarkable physical exam and treated feed intranasal lidocaine bilaterally and IM Benadryl with improvement of her condition. Patient was advised to follow-up with her primary care physician and neurologist and continue home medication. Dragon Disclaimer Dragon Disclaimer This electronic medical record was generated, in whole or in part, using a voice recognition dictation system. Departure Departure Impression: Primary Impression: Migraine headache Additional Impression: Nausea Disposition: HOME, SELF-CARE (at 1248) Condition: IMPROVED Referrals: SALINA DE ANDA (PCP) Patient Instructions: Migraine Headache Additional Instructions: Continue home migraine medication Follow-up with your primary care physician in 3-5 days Return to ER if not getting better Problem Qualifiers Primary Impression: Migraine headache Migraine type: unspecified Status migrainosus presence: without status migrainosus Intractability: not intractable Qualified Codes: G43.909 - Migraine, unspecified, not intractable, without status migrainosus NUPUR MARCOS MD Apr 08, 2019 12:49
== END 2019-04-08 12:56 | disposition home or self-care (01) ==
LOC: ER 11:13
DX: G43.909 Migraine, unspecified, not intractable, without status migrainosus (principal); R11.2 Nausea with vomiting, unspecified; J45.909 Unspecified asthma, uncomplicated; E11.9 Type 2 diabetes mellitus without complications; K21.9 Gastro-esophageal reflux disease without esophagitis; F41.9 Anxiety disorder, unspecified; F43.10 Post-traumatic stress disorder, unspecified; Z98.890 Other specified postprocedural states; Z87.820 Personal history of traumatic brain injury; Z88.0 Allergy status to penicillin; Z88.5 Allergy status to narcotic agent; Z88.6 Allergy status to analgesic agent; Z88.8 Allergy status to other drugs, medicaments and biological substances
CPT/HCPCS: 96372; 99284; J1200

== ENCOUNTER 2019-04-11 17:12 | Emergency (ER) | payer MEDICARE, MEDICAID ==
[~2019-04-11] VITALS: Ht 167.6 cm; Wt 95.3 kg
[2019-04-11 18:14] VITALS: BP 138/86
[2019-04-11] MEDS ORDERED: IV NORMAL SALINE 1000ML BAG 1,000 ML IV ONE (18:30)
[2019-04-11] MEDS ORDERED: DEXAMETHASONE SOD PHOS 20 MG/5 ML VIAL. IV ONE (18:30)
[2019-04-11] MEDS ORDERED: diphenhydrAMINE 50 MG/ML VIAL IVP ONE (18:30)
[2019-04-11] MEDS ORDERED: DEXAMETHASONE SOD PHOS 20 MG/5 ML VIAL. IM ONE (19:00)
[2019-04-11] MEDS ORDERED: diphenhydrAMINE 50 MG/ML VIAL IM ONE (19:00)
--- NOTE | 2019-04-11 19:01 | PHYS DOC ---
Past Medical History Past Medical History: Anxiety, Asthma, Diabetes-Type II, GERD, Migraines, UTI Additional Past Medical Histor: Personality disorder, TBI, Broken neck, PTSD (LANNY WATERS APRN) Past Surgical History: Hysterectomy, Tonsillectomy Additional Past Surgical Histo: Brain surgery, oral surgery, T&A, vag lesion removed (LANNY WATERS APRN) Alcohol Use: None Drug Use: None (LANNY WATERS APRN) Attending Signature I have participated in the care of this patient and I have reviewed and agree with all pertinent clinical information above including history, exam, and recommendations. (ALONSO VELIZ MD) Adult General Chief Complaint Chief Complaint: HEADACHE HPI HPI Patient is a 33 year old female, accompanied by her significant other, who presents to the emergency room with complaints of a migraine for the last 8 days. Patient states that her pain is currently 8 out of 10 on the pain scale, she denies any alleviating factors states that she has tried taking her Soma at home with no relief of her pain. She reports having nausea and vomiting 6 in the last 24 hours. Patient also states that she feels lightheaded and that light has been bothering her eyes. She denies any numbness, tingling, weakness, abdominal pain, diarrhea, fever, dysuria, hematuria, increased urinary frequency, or low back pain. Patient states she has several prior visits to the ER for the same symptoms. Patient states she has a primary care doctor appointment tomorrow. All other ROS is neg unless otherwise noted in HPI. (LANNY WATERS APRN) Review of Systems Review of Systems See Above (LANNY WATERS APRN) Current Medications Current Medications Current Medications Medications (Trade) Dose Ordered Sig/Milagros Start Time Stop Time Status Last Admin Dose Admin Dexamethasone Sodium Phosphate (Decadron) 10 mg 1X ONCE 04/11/19 19:00 04/11/19 19:01 DC 04/11/19 18:37 10 MG Diphenhydramine HCl (Benadryl) 25 mg 1X ONCE 04/11/19 19:00 04/11/19 19:01 DC 04/11/19 18:37 25 MG Sodium Chloride 1,000 ml @ 1,000 mls/hr 1X ONCE 04/11/19 18:30 04/11/19 18:31 DC (ALONSO VELIZ MD) Allergies Allergies Allergies Coded Allergies Type Severity Reaction Last Updated Verified Penicillins Allergy Intermediate 12/09/17 Yes adhesive Allergy Intermediate 12/09/17 Yes ketorolac Allergy Intermediate 12/09/17 Yes metoclopramide Allergy Intermediate 12/09/17 Yes ondansetron Allergy Intermediate 12/09/17 Yes prochlorperazine Allergy Intermediate 12/09/17 Yes (ALONSO VELIZ MD) Physical Exam Physical Exam See Above Constitutional: Well developed, well nourished, no acute distress, non-toxic appearance, obese. [] HENT: Normocephalic, atraumatic, bilateral external ears normal, oropharynx moist, no oral exudates, nose normal. [] Eyes: PERRLA, EOMI, conjunctiva normal, no discharge. [] Neck: Normal range of motion, no stridor. [] Cardiovascular:Heart rate regular rhythm Lungs & Thorax: Bilateral breath sounds clear to auscultation [] Skin: Warm, dry, no erythema, no rash. [] Back: No tenderness Extremities: No cyanosis, ROM intact Neurologic: Alert and oriented X 3, normal motor function, normal sensory function, no focal deficits noted. [] Psychologic: Affect normal, judgement normal, mood normal. [] (LANNY WATERS APRN) Current Patient Data Vital Signs Vital Signs Date Time Temp Pulse Resp B/P (MAP) Pulse Ox O2 Delivery O2 Flow Rate FiO2 04/11/19 18:14 97 16 100 04/11/19 17:40 98.3 162/90 (114) Room Air 98.3 (ALONSO VELIZ MD) EKG EKG [] (LANNY WATERS APRN) Radiology/Procedures Radiology/Procedures [] (LANNY WATERS APRN) Course & Med Decision Making Course & Med Decision Making Pertinent Labs and Imaging studies reviewed. (See chart for details) Nursing staff was unable to initiate a successful IV line. The patient was given IM Benadryl and Decadron for relief of her pain. Patient was instructed to follow-up with her primary care doctor as planned tomorrow morning. Recommend the patient go home and rest in a quiet room, take her medications as previously prescribed. Return to the ER if symptoms worsen. Patient verbalized an understanding of home care, medications, follow-up, and return to ED instructions and was in agreement with the plan of care. [] (LANNY WATERS APRN) Dragon Disclaimer Dragon Disclaimer This electronic medical record was generated, in whole or in part, using a voice recognition dictation system. (LANNY WATERS APRN) Departure Departure Impression: Primary Impression: Migraine headache Disposition: HOME, SELF-CARE Condition: IMPROVED Referrals: SALINA D EANDA (PCP) Patient Instructions: Migraine Headache, [id number] Additional Instructions: Follow up with your doctor as planned tomorrow. Take your home medications as prescribed. Problem Qualifiers Primary Impression: Migraine headache Migraine type: unspecified Status migrainosus presence: without status migrainosus Intractability: not intractable Qualified Codes: G43.909 - Migraine, unspecified, not intractable, without status migrainosus LANNY WATERS APRN Apr 11, 2019 19:01 ALONSO VELIZ MD Apr 12, 2019 04:00
== END 2019-04-11 19:04 | disposition home or self-care (01) ==
LOC: ER 17:12
DX: G43.909 Migraine, unspecified, not intractable, without status migrainosus (principal); F41.9 Anxiety disorder, unspecified; R42 Dizziness and giddiness; E11.9 Type 2 diabetes mellitus without complications; K21.9 Gastro-esophageal reflux disease without esophagitis; J45.909 Unspecified asthma, uncomplicated; Z87.820 Personal history of traumatic brain injury; F43.10 Post-traumatic stress disorder, unspecified; Z98.890 Other specified postprocedural states; Z88.0 Allergy status to penicillin; Z88.5 Allergy status to narcotic agent; Z88.6 Allergy status to analgesic agent; Z88.8 Allergy status to other drugs, medicaments and biological substances
CPT/HCPCS: 96372; 99284; J1100; J1200

== ENCOUNTER 2019-04-20 20:12 | Emergency (ER) | payer MEDICARE, MEDICAID ==
[~2019-04-20] VITALS: Ht 167.6 cm; Wt 104.3 kg
[2019-04-20] MEDS ORDERED: diphenhydrAMINE 50 MG/ML VIAL IVP ONE (20:30)
[2019-04-20] MEDS ORDERED: IV NORMAL SALINE 1000ML BAG 1,000 ML IV ONE (20:30)
[2019-04-20 20:33] LABS: BILIRUBIN,URINE NEGATIVE (NEG); COLOR,URINE YELLOW; NITRITE,URINE NEGATIVE (NEG); PH,URINE 6.5; PROTEIN,URINE NEGATIVE (NEG-TRACE); UROBILINOGEN,URINE 0.2 mg/dL (0.2 mg/dL)
--- NOTE | 2019-04-20 20:36 | PHYS DOC ---
Past Medical History Past Medical History: Anxiety, Asthma, Diabetes-Type II, GERD, Migraines, UTI Additional Past Medical Histor: Personality disorder, TBI, Broken neck, PTSD (QUITA SINGH APRN) Past Surgical History: Hysterectomy, Tonsillectomy Additional Past Surgical Histo: Brain surgery, oral surgery, T&A, vag lesion removed (QUITA SINGH APRN) Alcohol Use: None Drug Use: None (QUITA SINGH APRN) Adult General Chief Complaint Chief Complaint: FLANK PAIN HPI HPI Patient is a 33 year old Female who presents with today began having bilateral flank pain that wraps around to the front. Patient states the pain is always there but it is worse when she sits up or bends over. Patient rates her pain 10 out of 10. Patient states she does see a urologist and they have told her the warning signs of flank pain. Patient does have a history of kidney stones. States she's began having nausea and vomiting today and she cannot keep down any medications or fluids. Patient states only thing that she can take for nausea is Phenergan and Benadryl. (QUITA SINGH CREDIT RISK SPECIALIST) Review of Systems Review of Systems GI: Denies abdominal pain, nausea, vomiting, denies bloody stools or diarrhea [] Musculoskeletal: Bilateral flank back pain or joint pain [] All other systems were reviewed and found to be within normal limits, except as documented in this note. (QUITA SINGH APRN) Current Medications Current Medications Current Medications Medications (Trade) Dose Ordered Sig/Milagros Start Time Stop Time Status Last Admin Dose Admin Diphenhydramine HCl (Benadryl) 25 mg 1X ONCE 04/20/19 20:30 04/20/19 20:31 DC 04/20/19 21:07 25 MG Orphenadrine Citrate (Norflex) 60 mg 1X ONCE 04/20/19 21:15 04/20/19 21:16 DC 04/20/19 21:25 60 MG Sodium Chloride 1,000 ml @ 1,000 mls/hr 1X ONCE 04/20/19 20:30 04/20/19 21:29 DC 04/20/19 21:06 1,000 MLS/HR (MICHELLE VALDEZ DO) Allergies Allergies Allergies Coded Allergies Type Severity Reaction Last Updated Verified Penicillins Allergy Intermediate 12/09/17 Yes adhesive Allergy Intermediate 12/09/17 Yes ketorolac Allergy Intermediate 12/09/17 Yes metoclopramide Allergy Intermediate 12/09/17 Yes ondansetron Allergy Intermediate 12/09/17 Yes prochlorperazine Allergy Intermediate 12/09/17 Yes (MICHELLE VALDEZ DO) Physical Exam Physical Exam Constitutional: Well developed, well nourished, no acute distress, non-toxic appearance. [] HENT: Normocephalic, atraumatic, bilateral external ears normal, oropharynx moist, no oral exudates, nose normal. [] Eyes: PERRLA, EOMI, conjunctiva normal, no discharge. [] Neck: Normal range of motion, no tenderness, supple, no stridor. [] Cardiovascular:Heart rate regular rhythm, no murmur [] Lungs & Thorax: Bilateral breath sounds clear to auscultation [] Abdomen: Bowel sounds normal, soft, no tenderness, no masses, no pulsatile masses. [] Skin: Warm, dry, no erythema, no rash. [] Back: No tenderness, Bilateral CVA tenderness. [] Extremities: No tenderness, no cyanosis, no clubbing, ROM intact, no edema. [] Neurologic: Alert and oriented X 3, normal motor function, normal sensory function, no focal deficits noted. [] Psychologic: Affect normal, judgement normal, mood normal. [] (QUITA SINGH APRN) Current Patient Data Vital Signs Vital Signs Date Time Temp Pulse Resp B/P (MAP) Pulse Ox O2 Delivery O2 Flow Rate FiO2 04/20/19 20:25 97.3 120 21 122/89 (100) 98 Room Air 97.3 (MICHELLE VALDEZ DO) Lab Values Laboratory Tests Test 04/20/19 20:20 04/20/19 20:27 04/20/19 20:55 Urine Collection Type Void Urine Color Yellow Urine Clarity Clear Urine pH 6.5 Urine Specific [place] 1.010 Urine Protein Negative mg/dL (NEG-TRACE) Urine Glucose (UA) 250 mg/dL (NEG) Urine Ketones (Stick) Negative mg/dL (NEG) Urine Blood Negative (NEG) Urine Nitrite Negative (NEG) Urine Bilirubin Negative (NEG) Urine Urobilinogen Dipstick 0.2 mg/dL (0.2 mg/dL) Urine Leukocyte Esterase Trace (NEG) Urine RBC 0 /HPF (0-2) Urine WBC 1-4 /HPF (0-4) Urine Squamous Epithelial Cells Many /LPF Urine Bacteria Many /HPF (0-FEW) Urine Opiates Screen Neg (NEG) Urine Methadone Screen Neg (NEG) Urine Barbiturates Pos (NEG) Urine Phencyclidine Screen Neg (NEG) Urine Amphetamine/Methamphetamine Neg (NEG) Urine Benzodiazepines Screen Pos (NEG) Urine Cocaine Screen Neg (NEG) Urine Cannabinoids Screen Neg (NEG) Urine Ethyl Alcohol Neg (NEG) POC Urine HCG, Qualitative Hcg negative (Negative) White Blood Count 10.9 x10^3/uL (4.0-11.0) Red Blood Count 4.80 x10^6/uL (3.50-5.40) Hemoglobin 12.6 g/dL (12.0-15.5) Hematocrit 38.0 % (36.0-47.0) Mean Corpuscular Volume 79 fL (79-100) Mean Corpuscular Hemoglobin 26 pg (25-35) Mean Corpuscular Hemoglobin Concent 33 g/dL (31-37) Red Cell Distribution Width 14.9 % (11.5-14.5) H Platelet Count 278 x10^3/uL (140-400) Neutrophils (%) (Auto) 74 % (31-73) H Lymphocytes (%) (Auto) 18 % (24-48) L Monocytes (%) (Auto) 7 % (0-9) Eosinophils (%) (Auto) 1 % (0-3) Basophils (%) (Auto) 0 % (0-3) Neutrophils # (Auto) 8.0 x10^3/uL (1.8-7.7) H Lymphocytes # (Auto) 2.0 x10^3/uL (1.0-4.8) Monocytes # (Auto) 0.7 x10^3/uL (0.0-1.1) Eosinophils # (Auto) 0.1 x10^3/uL (0.0-0.7) Basophils # (Auto) 0.0 x10^3/uL (0.0-0.2) Sodium Level 136 mmol/L (136-145) Potassium Level 3.8 mmol/L (3.5-5.1) Chloride Level 100 mmol/L (98-107) Carbon Dioxide Level 24 mmol/L (21-32) Anion Gap 12 (6-14) Blood Urea Nitrogen 10 mg/dL (7-20) Creatinine 1.0 mg/dL (0.6-1.0) Estimated GFR (Cockcroft-Gault) 63.5 BUN/Creatinine Ratio 10 (6-20) Glucose Level 218 mg/dL (70-99) H Calcium Level 8.9 mg/dL (8.5-10.1) Total Bilirubin 0.1 mg/dL (0.2-1.0) L Aspartate Amino Transferase (AST) 26 U/L (15-37) Alanine Aminotransferase (ALT) 46 U/L (14-59) Alkaline Phosphatase 183 U/L (46-116) H Total Protein 7.1 g/dL (6.4-8.2) Albumin 3.4 g/dL (3.4-5.0) Albumin/Globulin Ratio 0.9 (1.0-1.7) L Lipase 128 U/L (73-393) Laboratory Tests 04/20/19 20:55 Laboratory Tests 04/20/19 20:55 (MICHELLE VALDEZ DO) Lab Values Laboratory Tests Test 04/20/19 20:20 04/20/19 20:27 04/20/19 20:55 Urine Collection Type Void Urine Color Yellow Urine Clarity Clear Urine pH 6.5 Urine Specific [place] 1.010 Urine Protein Negative mg/dL (NEG-TRACE) Urine Glucose (UA) 250 mg/dL (NEG) Urine Ketones (Stick) Negative mg/dL (NEG) Urine Blood Negative (NEG) Urine Nitrite Negative (NEG) Urine Bilirubin Negative (NEG) Urine Urobilinogen Dipstick 0.2 mg/dL (0.2 mg/dL) Urine Leukocyte Esterase Trace (NEG) Urine RBC 0 /HPF (0-2) Urine WBC 1-4 /HPF (0-4) Urine Squamous Epithelial Cells Many /LPF Urine Bacteria Many /HPF (0-FEW) Urine Opiates Screen Neg (NEG) Urine Methadone Screen Neg (NEG) Urine Barbiturates Pos (NEG) Urine Phencyclidine Screen Neg (NEG) Urine Amphetamine/Methamphetamine Neg (NEG) Urine Benzodiazepines Screen Pos (NEG) Urine Cocaine Screen Neg (NEG) Urine Cannabinoids Screen Neg (NEG) Urine Ethyl Alcohol Neg (NEG) POC Urine HCG, Qualitative Hcg negative (Negative) White Blood Count 10.9 x10^3/uL (4.0-11.0) Red Blood Count 4.80 x10^6/uL (3.50-5.40) Hemoglobin 12.6 g/dL (12.0-15.5) Hematocrit 38.0 % (36.0-47.0) Mean Corpuscular Volume 79 fL (79-100) Mean Corpuscular Hemoglobin 26 pg (25-35) Mean Corpuscular Hemoglobin Concent 33 g/dL (31-37) Red Cell Distribution Width 14.9 % (11.5-14.5) H Platelet Count 278 x10^3/uL (140-400) Neutrophils (%) (Auto) 74 % (31-73) H Lymphocytes (%) (Auto) 18 % (24-48) L Monocytes (%) (Auto) 7 % (0-9) Eosinophils (%) (Auto) 1 % (0-3) Basophils (%) (Auto) 0 % (0-3) Neutrophils # (Auto) 8.0 x10^3/uL (1.8-7.7) H Lymphocytes # (Auto) 2.0 x10^3/uL (1.0-4.8) Monocytes # (Auto) 0.7 x10^3/uL (0.0-1.1) Eosinophils # (Auto) 0.1 x10^3/uL (0.0-0.7) Basophils # (Auto) 0.0 x10^3/uL (0.0-0.2) Sodium Level 136 mmol/L (136-145) Potassium Level 3.8 mmol/L (3.5-5.1) Chloride Level 100 mmol/L (98-107) Carbon Dioxide Level 24 mmol/L (21-32) Anion Gap 12 (6-14) Blood Urea Nitrogen 10 mg/dL (7-20) Creatinine 1.0 mg/dL (0.6-1.0) Estimated GFR (Cockcroft-Gault) 63.5 BUN/Creatinine Ratio 10 (6-20) Glucose Level 218 mg/dL (70-99) H Calcium Level 8.9 mg/dL (8.5-10.1) Total Bilirubin 0.1 mg/dL (0.2-1.0) L Aspartate Amino Transferase (AST) 26 U/L (15-37) Alanine Aminotransferase (ALT) 46 U/L (14-59) Alkaline Phosphatase 183 U/L (46-116) H Total Protein 7.1 g/dL (6.4-8.2) Albumin 3.4 g/dL (3.4-5.0) Albumin/Globulin Ratio 0.9 (1.0-1.7) L Lipase 128 U/L (73-393) Laboratory Tests 04/20/19 20:55 Laboratory Tests 04/20/19 20:55 (QUITA SINGH APRN) EKG EKG [] (QUITA SINGH APRN) Radiology/Procedures Radiology/Procedures [] (QUITA SINGH APRN) Course & Med Decision Making Course & Med Decision Making Alert and oriented. Ambulatory with steady gait. Bilateral CVA tenderness. Skin pink warm and dry. Abdomen is soft and tender at epigastric. Speaks in full clear sentences. PERRLA. No extremity edema. Patient is here frequently for migraines and abdominal pain. Patient does have chronic back pain. Patient denies chest pain, shortness of air, numbness or tingling, dizziness, headache, fever, dysuria, recent illness, weakness. Lungs are clear to auscultation lobes. Blood work unremarkable. Urine is contaminated. I have discussed this patient and the care plan with Dr Valdez. Patient is referred to GI. (QUITA SINGH APRN) Dragon Disclaimer Dragon Disclaimer This electronic medical record was generated, in whole or in part, using a voice recognition dictation system. (QUITA SINGH APRN) Departure Departure Impression: Primary Impression: Nausea and vomiting Additional Impression: Back pain Disposition: 01 HOME, SELF-CARE Condition: STABLE Referrals: SALINA DE ANDA (PCP) EMRE HANDY MD Patient Instructions: Back Pain, Adult, Nausea and Vomiting, [id number] Additional Instructions: Follow up with your primary care of GI if symptoms persist. Scripts Promethazine Hcl (PROMETHAZINE HCL) 25 Mg Tablet 1 TAB PO PRN Q6HRS, #20 TAB Prov: QUITA SINGH APRN 04/20/19 Orphenadrine Citrate (ORPHENADRINE CITRATE) 100 Mg Tablet.er 1 TAB PO BID for 7 Days, #14 TAB Prov: QUITA SINGH APRN 04/20/19 Attending Signature Attending Signature I have reviewed the PA/CLINICAL ACCOUNT MANAGER's note and plan of care. I was available for consultation as needed during the patient's visit in the emergency department. I agree with the clinical impression, plan, and disposition. (MICHELLE VALDEZ DO) Problem Qualifiers Primary Impression: Nausea and vomiting Vomiting type: unspecified Vomiting Intractability: non-intractable Qualified Codes: R11.2 - Nausea with vomiting, unspecified Additional Impression: Back pain Back pain location: back pain in other location Chronicity: chronic Qualified Codes: M54.9 - Dorsalgia, unspecified; G89.29 - Other chronic pain QUITA SINGH APRN Apr 20, 2019 20:36 MICHELLE VALDEZ DO Apr 20, 2019 22:11
[2019-04-20 20:39] LABS: CLARITY,URINE CLEAR
[2019-04-20 20:41] LABS: AMPHETAMINE/METHAMPHETAMINE NEG (NEG); BARBITURATES POS (NEG); BENZODIAZEPINES POS (NEG); CANNABINOIDS NEG (NEG); COCAINE NEG (NEG); METHADONE NEG (NEG); OPIATES NEG (NEG); PHENCYCLIDINE NEG (NEG)
[2019-04-20 20:42] LABS: BACTERIA,URINE MANY /HPF (0-FEW); RBC,URINE 0 /HPF (0-2); SQUAMOUS EPITHELIAL CELL,UR MANY /LPF
[2019-04-20 21:03] LABS: BASO % 0 % (0-3); EOS # 0.1 x10^3/uL (0.0-0.7); EOS % 1 % (0-3); HEMOGLOBIN 12.6 g/dL (12.0-15.5); LYMPH % 18 % (24-48); MEAN CORPUSCULAR HEMOGLOBIN 26 pg (25-35); MEAN CORPUSCULAR HGB CONC 33 g/dL (31-37); MEAN CORPUSCULAR VOLUME 79 fL (79-100); MONO # 0.7 x10^3/uL (0.0-1.1); MONO % 7 % (0-9); NEUT % 74 % (31-73); PLATELET COUNT 278 x10^3/uL (140-400); RED CELL DISTRIBUTION WIDTH 14.9 % (11.5-14.5); WHITE BLOOD COUNT 10.9 x10^3/uL (4.0-11.0)
[2019-04-20 21:11] LABS: CALCIUM 8.9 mg/dL (8.5-10.1); GFR 63.5; POTASSIUM 3.8 mmol/L (3.5-5.1)
[2019-04-20] MEDS ORDERED: ORPHENADRINE CITRATE 60 MG/2 ML VIAL. IM ONE (21:15)
[2019-04-20 21:17] LABS: ALBUMIN 3.4 g/dL (3.4-5.0); ALBUMIN/GLOBULIN RATIO 0.9 (1.0-1.7); TOTAL BILIRUBIN 0.1 mg/dL (0.2-1.0); TOTAL PROTEIN 7.1 g/dL (6.4-8.2)
[2019-04-20 21:30] VITALS: BP 121/69
[2019-04-20] MEDS ORDERED: ORPH100T PO (21:31)
[2019-04-20] MEDS ORDERED: PROM25TA10 PO (21:31)
== END 2019-04-20 21:40 | disposition home or self-care (01) ==
LOC: ER 20:12
DX: R11.2 Nausea with vomiting, unspecified (principal); M54.9 Dorsalgia, unspecified; G89.29 Other chronic pain; E11.9 Type 2 diabetes mellitus without complications; J45.909 Unspecified asthma, uncomplicated; K21.9 Gastro-esophageal reflux disease without esophagitis; G43.909 Migraine, unspecified, not intractable, without status migrainosus; F41.9 Anxiety disorder, unspecified; Z87.440 Personal history of urinary (tract) infections; Z90.710 Acquired absence of both cervix and uterus; Z88.0 Allergy status to penicillin; Z88.5 Allergy status to narcotic agent; Z88.6 Allergy status to analgesic agent; Z88.8 Allergy status to other drugs, medicaments and biological substances
CPT/HCPCS: 36415; 80053; 80307; 81001; 81025; 83690; 85025; 87086; 96372; 96374; 99284; J1200; J2360; J7030

== ENCOUNTER → 2019-05-10 | Emergency (ER) | payer MEDICARE, MEDICAID ==
[~2019-05-10] VITALS: Ht 167.6 cm; Wt 97.5 kg
[~2019-05-10] MED LIST changes: +ORPH100T PO; +diphenhydrAMINE 50 MG/ML VIAL IVP ONE; +fentaNYL PF VIAL 100 MCG/2 ML VIAL IV ONE
[2019-05-10] MEDS: IV NORMAL SALINE 1000ML BAG 1,000 ML IV STA (18:53)
--- NOTE | 2019-05-10 19:22 | RAD ---
RS Compliance Statement: One or more of the following individualized dose reduction techniques were utilized for this examination: 1. Automated exposure control 2. Adjustment of the mA and/or kV according to patient size 3. Use of iterative reconstruction technique CT HEAD WITHOUT CONTRAST History: Headache, falls, neuro changes. Comparison: CT head without contrast April 05, 2019. Procedure: Axial images are obtained of the head from the skull base through the vertex without IV contrast. Findings: The ventricles and sulci are normal for the patient's age. No mass-effect, midline shift, hemorrhage, extra-axial fluid collection, or obvious acute infarction is identified. Basilar cisterns are patent. Bone windows demonstrate no acute calvarial abnormality. The visualized paranasal sinuses are clear. Mastoid air cells are well aerated. IMPRESSION: No acute intracranial abnormality. Electronically signed by: Vasquez Garcia MD (05/10/2019 7:19 PM) [facility]
--- NOTE | 2019-05-10 19:23 | PHYS DOC ---
Past Medical History Past Medical History: Anxiety, Asthma, Diabetes-Type II, GERD, Migraines, UTI Additional Past Medical Histor: Personality disorder, TBI, Broken neck, PTSD Past Surgical History: Hysterectomy, Tonsillectomy Additional Past Surgical Histo: Brain surgery, oral surgery, T&A, vag lesion removed Alcohol Use: None Drug Use: None Adult General Chief Complaint Chief Complaint: MECHANICAL FALL HPI HPI Patient is a 33 year old female who presents with neurological changes. The patient states that she has a history of migraines. Patient also states that over the last week she's been having right-sided facial droop, slurred speech, multiple falls. She says earlier today her legs gave out and she fell down. She says she she feels like her left side is weaker. She also sensation changes her left side. Reports her pain as 7 out of 10 in severity and sharp. She states she has a headache. She also has left elbow pain. Review of Systems Review of Systems Constitutional: Reports weakness. Denies fever or chills [] Eyes: Denies change in visual acuity, redness, or eye pain [] HENT: Denies nasal congestion or sore throat [] Respiratory: Reports cough. Cardiovascular: No additional information not addressed in HPI [] GI: Denies abdominal pain, nausea, vomiting, bloody stools or diarrhea [] : Denies dysuria or hematuria [] Musculoskeletal: Reports L elbow pain. Integument: Denies rash or skin lesions [] Neurologic: Reports headache, weakness and sensory changes [] Endocrine: Denies polyuria or polydipsia [] Complete systems were reviewed and found to be within normal limits, except as documented in this note. Current Medications Current Medications Current Medications Medications (Trade) Dose Ordered Sig/Milagros Start Time Stop Time Status Last Admin Dose Admin Diphenhydramine HCl (Benadryl) 50 mg 1X ONCE 05/10/19 20:30 05/10/19 20:31 DC 05/10/19 20:39 50 MG Fentanyl Citrate (Fentanyl 2ml Vial) 100 mcg 1X ONCE 05/10/19 20:30 19 20:31 DC 05/10/19 20:41 100 MCG Sodium Chloride 1,000 ml @ 1,000 mls/hr 1X STAT 05/10/19 18:53 05/10/19 19:52 DC Allergies Allergies Allergies Coded Allergies Type Severity Reaction Last Updated Verified Penicillins Allergy Intermediate 12/09/17 Yes adhesive Allergy Intermediate 12/09/17 Yes ketorolac Allergy Intermediate 12/09/17 Yes metoclopramide Allergy Intermediate 12/09/17 Yes ondansetron Allergy Intermediate 12/09/17 Yes prochlorperazine Allergy Intermediate 12/09/17 Yes Physical Exam Physical Exam Constitutional: Well developed, well nourished, no acute distress, non-toxic appearance. [] HENT: Normocephalic, atraumatic, bilateral external ears normal, oropharynx mo ist, no oral exudates, nose normal. [] Eyes: PERRLA, EOMI, conjunctiva normal, no discharge. [] Neck: Normal range of motion, no tenderness, supple, no stridor. [] Cardiovascular:Heart rate regular rhythm, no murmur [] Lungs & Thorax: Bilateral breath sounds clear to auscultation [] Skin: Warm, dry, no erythema, no rash. [] Back: No tenderness, no CVA tenderness. [] Extremities: No tenderness, no cyanosis, no clubbing, ROM intact, no edema. [] Neurologic: Alert and oriented X 3. See NIHSS. Psychologic: Affect normal, judgement normal, mood normal. [] Current Patient Data Vital Signs Vital Signs Date Time Temp Pulse Resp B/P (MAP) Pulse Ox O2 Delivery O2 Flow Rate FiO2 05/10/19 20:41 24 97 05/10/19 19:23 98.0 101 98.0 05/10/19 18:27 135/99 (111) Room Air Lab Values Laboratory Tests Test 05/10/19 20:20 05/10/19 20:44 White Blood Count 7.1 x10^3/uL (4.0-11.0) Red Blood Count 5.20 x10^6/uL (3.50-5.40) Hemoglobin 13.5 g/dL (12.0-15.5) Hematocrit 40.7 % (36.0-47.0) Mean Corpuscular Volume 78 fL (79-100) L Mean Corpuscular Hemoglobin 26 pg (25-35) Mean Corpuscular Hemoglobin Concent 33 g/dL (31-37) Red Cell Distribution Width 15.0 % (11.5-14.5) H Platelet Count 260 x10^3/uL (140-400) Neutrophils (%) (Auto) 62 % (31-73) Lymphocytes (%) (Auto) 30 % (24-48) Monocytes (%) (Auto) 6 % (0-9) Eosinophils (%) (Auto) 1 % (0-3) Basophils (%) (Auto) 1 % (0-3) Neutrophils # (Auto) 4.4 x10^3/uL (1.8-7.7) Lymphocytes # (Auto) 2.1 x10^3/uL (1.0-4.8) Monocytes # (Auto) 0.4 x10^3/uL (0.0-1.1) Eosinophils # (Auto) 0.1 x10^3/uL (0.0-0.7) Basophils # (Auto) 0.1 x10^3/uL (0.0-0.2) Prothrombin Time 13.6 SEC (11.7-14.0) Prothrombin Time INR 1.1 (0.8-1.1) Activated Partial Thromboplast Time 26 SEC (24-38) Sodium Level 136 mmol/L (136-145) Potassium Level 4.0 mmol/L (3.5-5.1) Chloride Level 97 mmol/L (98-107) L Carbon Dioxide Level 29 mmol/L (21-32) Anion Gap 10 (6-14) Blood Urea Nitrogen 7 mg/dL (7-20) Creatinine 0.9 mg/dL (0.6-1.0) Estimated GFR (Cockcroft-Gault) 71.7 BUN/Creatinine Ratio 8 (6-20) Glucose Level 334 mg/dL (70-99) H Calcium Level 9.6 mg/dL (8.5-10.1) Magnesium Level 1.6 mg/dL (1.8-2.4) L Total Bilirubin 0.2 mg/dL (0.2-1.0) Aspartate Amino Transferase (AST) 32 U/L (15-37) Alanine Aminotransferase (ALT) 45 U/L (14-59) Alkaline Phosphatase 224 U/L (46-116) H Troponin I Quantitative < 0.017 ng/mL (0.000-0.055) Total Protein 8.0 g/dL (6.4-8.2) Albumin 3.5 g/dL (3.4-5.0) Albumin/Globulin Ratio 0.8 (1.0-1.7) L Ethyl Alcohol Level < 10 mg/dL (0-10) Urine Opiates Screen Pos (NEG) Urine Methadone Screen Neg (NEG) Urine Barbiturates Pos (NEG) Urine Phencyclidine Screen Neg (NEG) Urine Amphetamine/Methamphetamine Neg (NEG) Urine Benzodiazepines Screen Pos (NEG) Urine Cocaine Screen Neg (NEG) Urine Cannabinoids Screen Neg (NEG) Urine Ethyl Alcohol Neg (NEG) Laboratory Tests 05/10/19 20:20 Laboratory Tests 05/10/19 20:20 EKG EKG EKG interpreted by Dr. Devan escalante at 101, baseline wandering. No STEMI.[] Radiology/Procedures Radiology/Procedures [] Course & Med Decision Making Course & Med Decision Making Pertinent Labs and Imaging studies reviewed. (See chart for details) Patient is having neurological changes and has had multiple falls over the last several days. Will get CT head, labs, and ekg, chest x-ray. Discussed with patient and will admit her to the hospital. I will admit her due to the neurological changes that she's been having, and the multiple falls she's had a last several days. Patient does not want to be admitted to the hospital. Patient states she wants to go home. I advised the patient of the risks of going home these risks include that she could've a stroke and not be put on the correct medicines for risk factors down the road. The patient also could even due to frequent falls and injuries that could come from this. Also discussed the patient to she's had a major stroke. Patient was okay with these risks and proceed to sign AGAINST MEDICAL ADVICE paperwork and leave. Dragon Disclaimer Dragon Disclaimer This electronic medical record was generated, in whole or in part, using a voice recognition dictation system. Departure Departure Impression: Primary Impression: Left against medical advice Disposition: AGAINST MEDICAL ADVICE Condition: GUARDED Referrals: SALINA DE ANDA (PCP) NIHSS Stroke Scale NIH Stroke Scale: NIH Stroke Scale Response (Comments) Value Level of Consciousness: 0 Alert/Responsive 0 LOC Questions: 0 Answers both correctly 0 LOC Commands: 0 Performs both tasks 0 Best Gaze: 0 Normal 0 Visual: 0 No visual loss 0 Facial Palsy: 1 Minor paralysis 1 Motor - Left Arm 0 No drift 0 Motor - Right Arm 0 No drift 0 Motor - Left Leg 0 No drift 0 Motor: Right Leg 0 No drift 0 Limb Ataxia: 0 Absent 0 Sensory: 1 Mid to moderate loss 1 Best Language: 1 Mild to mod aphasia 1 Dysathria: 1 Mild to moderate 1 Extinction and Inattention: 0 Normal 0 Total 4 MICHELLE BOYKIN APRN May 10, 2019 19:23
[2019-05-10 20:00] VITALS: BP 145/82
[2019-05-10 20:30] LABS: BASO # 0.1 x10^3/uL (0.0-0.2); BASO % 1 % (0-3); EOS # 0.1 x10^3/uL (0.0-0.7); EOS % 1 % (0-3); HEMATOCRIT 40.7 % (36.0-47.0); HEMOGLOBIN 13.5 g/dL (12.0-15.5); LYMPH # 2.1 x10^3/uL (1.0-4.8); LYMPH % 30 % (24-48); MEAN CORPUSCULAR HEMOGLOBIN 26 pg (25-35); MEAN CORPUSCULAR HGB CONC 33 g/dL (31-37); MEAN CORPUSCULAR VOLUME 78 fL (79-100); MONO # 0.4 x10^3/uL (0.0-1.1); MONO % 6 % (0-9); NEUT # 4.4 x10^3/uL (1.8-7.7); NEUT % 62 % (31-73); PLATELET COUNT 260 x10^3/uL (140-400); WHITE BLOOD COUNT 7.1 x10^3/uL (4.0-11.0)
[2019-05-10] MEDS: diphenhydrAMINE HCL 25 MG CAPSULE PO ONE (20:39)
[2019-05-10 20:40] LABS: PROTHROMBIN TIME PATIENT 13.6 SEC (11.7-14.0)
[2019-05-10] MEDS: fentaNYL PF VIAL 100 MCG/2 ML VIAL IM ONE (20:41)
[2019-05-10 20:43] LABS: CALCIUM 9.6 mg/dL (8.5-10.1); CREATININE 0.9 mg/dL (0.6-1.0); GFR 71.7
[2019-05-10 20:50] LABS: ALBUMIN 3.5 g/dL (3.4-5.0); ALBUMIN/GLOBULIN RATIO 0.8 (1.0-1.7); MAGNESIUM 1.6 mg/dL (1.8-2.4); TOTAL BILIRUBIN 0.2 mg/dL (0.2-1.0)
[2019-05-10 20:54] LABS: BILIRUBIN,URINE NEGATIVE (NEG); CLARITY,URINE CLEAR; COLOR,URINE YELLOW; NITRITE,URINE NEGATIVE (NEG); PH,URINE 6.5; PROTEIN,URINE NEGATIVE (NEG-TRACE); UROBILINOGEN,URINE 0.2 mg/dL (0.2 mg/dL)
[2019-05-10 20:59] LABS: BARBITURATES POS (NEG); BENZODIAZEPINES POS (NEG); CANNABINOIDS NEG (NEG); COCAINE NEG (NEG); METHADONE NEG (NEG); OPIATES POS (NEG); PHENCYCLIDINE NEG (NEG)
[2019-05-10 21:00] LABS: AMPHETAMINE/METHAMPHETAMINE NEG (NEG)
[2019-05-10 21:08] LABS: SQUAMOUS EPITHELIAL CELL,UR MANY /LPF
[2019-05-10 21:09] LABS: BACTERIA,URINE 0 /HPF (0-FEW); RBC,URINE 0 /HPF (0-2)
--- NOTE | 2019-05-11 03:01 | RAD ---
CHEST PA LATERAL INDICATION: Fall, cough. COMPARISON STUDY: None. FINDINGS: Lungs: Normal lung volume. Asymmetric left basilar opacities. The tracheobronchial tree and hilar structures are normal. Pleura: No pleural effusion or pneumothorax. Heart and Mediastinum: The cardiomediastinal silhouette is normal. The great vessels of the thorax are normal. IMPRESSION: Asymmetric left basilar opacities, which could represent subsegmental atelectasis or potentially an infectious/inflammatory process. Electronically signed by: Elian Mccurdy MD (05/11/2019 2:59 AM) [facility]
--- NOTE | 2019-05-11 03:02 | RAD ---
ELBOW LEFT 3V DATE: 05/10/2019 6:49 PM INDICATION: Fall COMPARISON: None. FINDINGS: Bones: There is no evidence of acute fracture or dislocation. Joints: The joint spaces are normal. There is no joint effusion. Miscellaneous: None. IMPRESSION: No evidence of acute fracture. Electronically signed by: Elian Mccurdy MD (05/11/2019 2:59 AM) [facility]
--- NOTE | 2019-05-11 06:55 | EKG ---
[facility] [address] [place] [address] Test Date: 2019-05-10 Test Time: 19:24:51 Pat Name: MIKIE AHMADI Department: Room: Gender: F Frequency Checker: : 1985 Requested By: MICHELLE BOYKIN Order Number: [id number] Reading MD: Measurements Intervals [place] Rate: 100 P: -30 ID: [id number] QRS: 8 QRSD: 102 T: 128 QT: 302 QTc: 392 Interpretive Statements SINUS TACHYCARDIA T ABNORMALITY IN LATERAL LEADS NON SPECIFIC ST DEPRESSION ABNORMAL ECG No previous ECG available for comparison
== END ==
LOC: ER 18:06
DX: G43.909 Migraine, unspecified, not intractable, without status migrainosus (principal); M25.522 Pain in left elbow; R05 Cough; J45.909 Unspecified asthma, uncomplicated; E11.9 Type 2 diabetes mellitus without complications; K21.9 Gastro-esophageal reflux disease without esophagitis; F43.10 Post-traumatic stress disorder, unspecified; Z87.820 Personal history of traumatic brain injury; Z88.0 Allergy status to penicillin; Z88.5 Allergy status to narcotic agent; Z88.6 Allergy status to analgesic agent; Z88.8 Allergy status to other drugs, medicaments and biological substances
CPT/HCPCS: 36415; 70450; 71046; 73080; 80053; 80307; 81001; 83735; 84484; 85025; 85610; 85730; 87086; 93005; 96372; 99285; G0480; J3010; Q0163

== ENCOUNTER 2019-05-25 05:56 | Emergency (ER) | payer MEDICARE, MEDICAID ==
[~2019-05-25] VITALS: Ht 172.7 cm; Wt 97.5 kg
[~2019-05-25 05:56] MED LIST changes: +BUTA1CAP58 PO; -diphenhydrAMINE 50 MG/ML VIAL IVP ONE; -fentaNYL PF VIAL 100 MCG/2 ML VIAL IV ONE
[2019-05-25] MEDS ORDERED: DEXAMETHASONE SOD PHOS 20 MG/5 ML VIAL. IM ONE (07:00)
[2019-05-25] MEDS ORDERED: BUTORPHANOL 2 MG/ML VIAL. IM ONE (07:00)
[2019-05-25] MEDS ORDERED: diphenhydrAMINE 50 MG/ML VIAL IM ONE (07:00)
--- NOTE | 2019-05-25 07:28 | PHYS DOC ---
Past Medical History Past Medical History: Anxiety, Asthma, Diabetes-Type II, GERD, Migraines, UTI Additional Past Medical Histor: Personality disorder, TBI, Broken neck, PTSD Past Surgical History: Hysterectomy, Tonsillectomy Additional Past Surgical Histo: Brain surgery, oral surgery, T&A, vag lesion removed Alcohol Use: None Drug Use: None Adult General Chief Complaint Chief Complaint: HEADACHE HPI HPI Patient is a 33-year-old female who presents with complaint of migraine headache that started yesterday. Patient indicates that she has been taking her prescribed medications which include Topamax as directed but headache is not improving. She rates pain at a 9 out of 10. She complains of photophobia and describes her headache as throbbing. She does admit to nausea but is had no vomiting. She also denies any fever.[] Review of Systems Review of Systems Constitutional: Denies fever or chills [] Respiratory: Denies cough or shortness of breath [] Cardiovascular: No additional information not addressed in HPI [] GI: Denies abdominal pain, vomiting or diarrhea [] Integument: Denies rash or skin lesions [] Neurologic: Complains of headache without focal weakness or sensory changes [] All other systems were reviewed and found to be within normal limits, except as documented in this note. Current Medications Current Medications Current Medications Medications (Trade) Dose Ordered Sig/Milagros Start Time Stop Time Status Last Admin Dose Admin Butorphanol Tartrate (Stadol) 2 mg 1X ONCE 05/25/19 07:00 05/25/19 07:01 DC 05/25/19 07:04 2 MG Dexamethasone Sodium Phosphate (Decadron) 10 mg 1X ONCE 05/25/19 07:00 05/25/19 07:01 DC 05/25/19 07:04 10 MG Diphenhydramine HCl (Benadryl) 50 mg 1X ONCE 05/25/19 07:00 05/25/19 07:01 DC 05/25/19 07:03 50 MG Allergies Allergies Allergies Coded Allergies Type Severity Reaction Last Updated Verified Penicillins Allergy Intermediate 12/09/17 Yes adhesive Allergy Intermediate 12/09/17 Yes ketorolac Allergy Intermediate 12/09/17 Yes metoclopramide Allergy Intermediate 12/09/17 Yes ondansetron Allergy Intermediate 12/09/17 Yes prochlorperazine Allergy Intermediate 12/09/17 Yes Physical Exam Physical Exam Constitutional: Well developed, well nourished, in mild distress, non-toxic appearance. [] HENT: Normocephalic, atraumatic, bilateral external ears normal, oropharynx moist, no oral exudates, nose normal. [] Eyes: PERRLA, EOMI, conjunctiva normal, no discharge. [] Neck: Normal range of motion, no tenderness, supple. [] Cardiovascular: Regular rate and rhythm[] Lungs & Thorax: Bilateral breath sounds clear to auscultation [] Abdomen: Bowel sounds normal, soft, no tenderness. [] Skin: Warm, dry, no erythema, no rash. [] Extremities: No tenderness, no cyanosis, no clubbing, ROM intact. [] Neurologic: Alert and oriented X 3, no focal deficits noted. [] Current Patient Data Vital Signs Vital Signs Date Time Temp Pulse Resp B/P (MAP) Pulse Ox O2 Delivery O2 Flow Rate FiO2 05/25/19 08:10 74 16 99 05/25/19 06:08 98.1 115/74 (88) Room Air 98.1 EKG EKG [] Radiology/Procedures Radiology/Procedures [] Course & Med Decision Making Course & Med Decision Making Pertinent Labs and Imaging studies reviewed. (See chart for details) [] Dragon Disclaimer Dragon Disclaimer This electronic medical record was generated, in whole or in part, using a voice recognition dictation system. Departure Departure Impression: Primary Impression: Migraine headache Disposition: 01 HOME, SELF-CARE Condition: STABLE Referrals: SALINA DE ANDA (PCP) Patient Instructions: Migraine Headache Problem Qualifiers Primary Impression: Migraine headache Migraine type: unspecified Status migrainosus presence: without status migrainosus Intractability: not intractable Qualified Codes: G43.909 - Migraine, unspecified, not intractable, without status migrainosus KENIA TO Jr. DO May 25, 2019 07:27
[2019-05-25 08:10] VITALS: BP 121/82
== END 2019-05-25 08:11 | disposition home or self-care (01) ==
LOC: ER 05:56
DX: G43.909 Migraine, unspecified, not intractable, without status migrainosus (principal); J45.909 Unspecified asthma, uncomplicated; E11.9 Type 2 diabetes mellitus without complications; K21.9 Gastro-esophageal reflux disease without esophagitis; Z87.820 Personal history of traumatic brain injury; Z88.0 Allergy status to penicillin; Z88.5 Allergy status to narcotic agent; Z88.6 Allergy status to analgesic agent; Z88.8 Allergy status to other drugs, medicaments and biological substances
CPT/HCPCS: 96372; 99284; J1100; J1200

== ENCOUNTER 2019-05-29 13:46 | Emergency (ER) | payer MEDICARE, MEDICAID ==
[~2019-05-29] VITALS: Ht 167.6 cm; Wt 97.5 kg
[2019-05-29 15:23] VITALS: BP 140/83
--- NOTE | 2019-05-29 15:37 | PHYS DOC ---
Past Medical History Past Medical History: Anxiety, Asthma, Diabetes-Type II, GERD, Migraines, UTI Additional Past Medical Histor: Personality disorder, TBI, Broken neck, PTSD Past Surgical History: Hysterectomy, Tonsillectomy Additional Past Surgical Histo: Brain surgery, oral surgery, T&A, vag lesion removed Alcohol Use: None Drug Use: None Adult General Chief Complaint Chief Complaint: HEADACHE HPI HPI Patient is a 33 year old female with history of asthma, diabetes type 2, migraine headaches, presenting to the ED today complaining of an 8 out of 10 generalized migraine headache with no nausea/ vomiting or photophobia, symptoms have been going on for 8 days. Patient states this is a chronic condition and there is nothing unusual about her headache today. She reports she has been taking Topamax and Soma with no relief. She is requesting Benadryl IM and some pain medicine IM. This is her third visit in the ED in the last 8 days. Review of Systems Review of Systems Constitutional: Denies fever or chills [] Eyes: Denies change in visual acuity, redness, or eye pain [] HENT: Denies nasal congestion or sore throat [] Respiratory: Denies cough or shortness of breath [] Cardiovascular: No additional information not addressed in HPI [] GI: Denies abdominal pain, nausea, vomiting, bloody stools or diarrhea [] : Denies dysuria or hematuria [] Musculoskeletal: Denies back pain or joint pain [] Integument: Denies rash or skin lesions [] Neurologic: Reports migraine headaches, denies focal weakness or sensory changes [] All other systems were reviewed and found to be within normal limits, except as documented in this note. Allergies Allergies Allergies Coded Allergies Type Severity Reaction Last Updated Verified trazodone Allergy Severe HIVES 05/29/19 Yes Penicillins Allergy Intermediate 12/09/17 Yes adhesive Allergy Intermediate 12/09/17 Yes ketorolac Allergy Intermediate 12/09/17 Yes metoclopramide Allergy Intermediate 12/09/17 Yes ondansetron Allergy Intermediate 12/09/17 Yes prochlorperazine Allergy Intermediate 12/09/17 Yes Physical Exam Physical Exam Constitutional: Well developed, well nourished, no acute distress, non-toxic appearance. [] HENT: Normocephalic, atraumatic, bilateral external ears normal, oropharynx moist, no oral exudates, nose normal. [] Eyes: PERRLA, EOMI, conjunctiva normal, no discharge. [] Neck: Normal range of motion, no tenderness, supple, no stridor. [] Cardiovascular:Heart rate regular rhythm, no murmur [] Lungs & Thorax: Bilateral breath sounds clear to auscultation [] Abdomen: Bowel sounds normal, soft, no tenderness, no masses, no pulsatile masses. [] Skin: Warm, dry, no erythema, no rash. [] Back: No tenderness, no CVA tenderness. [] Extremities: No tenderness, no cyanosis, no clubbing, ROM intact, no edema. [] Neurologic: Alert and oriented X 3, normal motor function, normal sensory function, no focal deficits noted. Cranial nerves II through XII intact Psychologic: Affect normal, judgement normal, mood normal. [] Current Patient Data Vital Signs Vital Signs Date Time Temp Pulse Resp B/P (MAP) Pulse Ox O2 Delivery O2 Flow Rate FiO2 05/29/19 15:23 98.3 106 18 140/83 (102) 98 Room Air 98.3 EKG EKG [] Radiology/Procedures Radiology/Procedures [] Course & Med Decision Making Course & Med Decision Making Pertinent Labs and Imaging studies reviewed. (See chart for details) This is a 33-year-old female patient presented to the ED today with chronic migraine headaches. There is nothing unusual about her headache today, see history of present illness, she is requesting pain shots and Benadryl. Offered her Decadron Norflex and Benadryl. Discharged to home. Dragon Disclaimer Dragon Disclaimer This electronic medical record was generated, in whole or in part, using a voice recognition dictation system. Departure Departure Impression: Primary Impression: Migraine headache Disposition: HOME, SELF-CARE Condition: STABLE Referrals: SALINA DE ANDA (PCP) Follow-up with your doctor in 1-2 weeks Patient Instructions: Migraine Headache, [id number] Additional Instructions: You were evaluated in the emergency room for migraine headaches. Please follow- up with your neurologist as soon as possible. Problem Qualifiers Primary Impression: Migraine headache Migraine type: without aura Status migrainosus presence: without status migrainosus Intractability: not intractable Qualified Codes: G43.009 - Migraine without aura, not intractable, without status migrainosus CLAUDIA DOBBINS INTEGRATIVE MEDICINE PHYSICIAN May 29, 2019 15:37
[2019-05-29] MEDS: diphenhydrAMINE 50 MG/ML VIAL IM ONE (15:55)
[2019-05-29] MEDS: ORPHENADRINE CITRATE 60 MG/2 ML VIAL. IM ONE (15:55)
[2019-05-29] MEDS: DEXAMETHASONE SOD PHOS 20 MG/5 ML VIAL. IM ONE (15:57)
== END 2019-05-29 16:14 | disposition home or self-care (01) ==
LOC: ER 13:46
DX: G43.009 Migraine without aura, not intractable, without status migrainosus (principal); J45.909 Unspecified asthma, uncomplicated; F41.9 Anxiety disorder, unspecified; E11.9 Type 2 diabetes mellitus without complications; K21.9 Gastro-esophageal reflux disease without esophagitis; F43.10 Post-traumatic stress disorder, unspecified; Z87.820 Personal history of traumatic brain injury; Z88.0 Allergy status to penicillin; Z88.5 Allergy status to narcotic agent; Z88.6 Allergy status to analgesic agent; Z88.8 Allergy status to other drugs, medicaments and biological substances
CPT/HCPCS: 96372; 99284; J1100; J1200; J2360

== ENCOUNTER 2019-05-30 02:36 | Emergency (ER) | payer MEDICARE, MEDICAID ==
[~2019-05-30] VITALS: Ht 167.6 cm; Wt 97.5 kg
[2019-05-30 02:50] VITALS: BP 133/84
--- NOTE | 2019-05-30 03:11 | PHYS DOC ---
Past Medical History Past Medical History: Anxiety, Asthma, Diabetes-Type II, GERD, Migraines, UTI Additional Past Medical Histor: Personality disorder, TBI, Broken neck, PTSD Past Surgical History: Hysterectomy, Tonsillectomy Additional Past Surgical Histo: Brain surgery, oral surgery, T&A, vag lesion removed Alcohol Use: None Drug Use: None Adult General Chief Complaint Chief Complaint: HEADACHE HPI HPI 33-year-old female presents to the emergency department with complaints of migraines. Patient states she takes Topamax. This migraine woke her approximately 2 hours prior to her arrival. She describes as a stabbing sensation. States is like her normal migraines. She has no photophobia or sensitivity to noise at this time. She denies any vomiting however has had some nausea. Patient has had multiple trips to the emergency department for similar type complaints. She has a laundry list of allergies for migraine treatments. Nothing makes her pain worse, nothing makes her pain better. Review of Systems Review of Systems Constitutional: Denies fever or chills [] Respiratory: Denies cough or shortness of breath [] Cardiovascular: No additional information not addressed in HPI [] GI: Denies abdominal pain, + nausea, no vomiting, bloody stools or diarrhea [] Integument: Denies rash or skin lesions [] Neurologic: + headache, no focal weakness or sensory changes [] All other systems were reviewed and found to be within normal limits, except as documented in this note. Current Medications Current Medications Current Medications Medications (Trade) Dose Ordered Sig/Milagros Start Time Stop Time Status Last Admin Dose Admin Acetaminophen/ Butalbital/ Caffeine (Fioricet) 1 tab 1X ONCE 05/30/19 03:30 05/30/19 03:31 Dexamethasone Sodium Phosphate (Decadron) 20 mg 1X ONCE 05/30/19 03:30 05/30/19 03:31 Diphenhydramine HCl (Benadryl) 50 mg 1X ONCE 05/30/19 03:30 05/30/19 03:31 Orphenadrine Citrate (Norflex) 60 mg 1X ONCE 05/30/19 03:30 05/30/19 03:31 Allergies Allergies Allergies Coded Allergies Type Severity Reaction Last Updated Verified trazodone Allergy Severe HIVES 05/29/19 Yes Penicillins Allergy Intermediate 12/09/17 Yes adhesive Allergy Intermediate 12/09/17 Yes ketorolac Allergy Intermediate 12/09/17 Yes metoclopramide Allergy Intermediate 12/09/17 Yes ondansetron Allergy Intermediate 12/09/17 Yes prochlorperazine Allergy Intermediate 12/09/17 Yes Physical Exam Physical Exam Constitutional: Well developed, well nourished, no acute distress, non-toxic appearance. [] HENT: Normocephalic, atraumatic, bilateral external ears normal, oropharynx moist, no oral exudates, nose normal. [] Eyes: PERRLA, EOMI, conjunctiva normal, no discharge. [] Neck: Normal range of motion, no tenderness, supple, no stridor. [] Cardiovascular:Heart rate regular rhythm, no murmur [] Lungs & Thorax: Bilateral breath sounds clear to auscultation [] Skin: Warm, dry, no erythema, no rash. [] Neurologic: Alert and oriented X 3, no focal deficits noted. [] Psychologic: Affect normal, judgement normal, mood normal. [] EKG EKG [] Radiology/Procedures Radiology/Procedures [] Course & Med Decision Making Course & Med Decision Making Pertinent Labs and Imaging studies reviewed. (See chart for details) []33-year-old female presents to the emergency department with complaints of migraines. Patient states she takes Topamax. This migraine woke her approximately 2 hours prior to her arrival. She describes as a stabbing sensation. States is like her normal migraines. She has no photophobia or sensitivity to noise at this time. She denies any vomiting however has had some nausea. Patient has had multiple trips to the emergency department for similar type complaints. She has a laundry list of allergies for migraine treatments. Nothing makes her pain worse, nothing makes her pain better. Bendaryl 50mg IM, Norflex 60mg IM, Decadron 20mg IM Recommend follow up with PCP as outpatient regarding migraine control Return precautions discussed and provided NO imaging at this time given acute on chronic migraine Dragon Disclaimer Dragon Disclaimer This electronic medical record was generated, in whole or in part, using a voice recognition dictation system. Departure Departure Impression: Primary Impression: Migraine headache Disposition: HOME, SELF-CARE Condition: IMPROVED Referrals: SALINA DE ANDA (PCP) Patient Instructions: Migraine Headache, [id number] Additional Instructions: Recommend follow up with PCP/Neurologist - consider adjusting medications for better Migraine control Return to the ER with worsening symptoms, intractable pain, fever, altered mental status Tylenol/Motrin as needed for pain Take medications as prescribed for pain Problem Qualifiers Primary Impression: Migraine headache Migraine type: unspecified Status migrainosus presence: with status migrainosus Intractability: not intractable Qualified Codes: G43.901 - Migraine, unspecified, not intractable, with status migrainosus ALONSO VELIZ MD May 30, 2019 03:11
[2019-05-30] MEDS: diphenhydrAMINE 50 MG/ML VIAL IM ONE (03:27)
[2019-05-30] MEDS: BUTALB/APAP/CAFEIN 50/325/40MG TABLET. PO ONE (03:27)
[2019-05-30] MEDS: ORPHENADRINE CITRATE 60 MG/2 ML VIAL. IM ONE (03:27)
[2019-05-30] MEDS: DEXAMETHASONE SOD PHOS 20 MG/5 ML VIAL. IM ONE (03:32)
== END 2019-05-30 03:35 | disposition home or self-care (01) ==
LOC: ER 02:36
DX: G43.901 Migraine, unspecified, not intractable, with status migrainosus (principal); J45.909 Unspecified asthma, uncomplicated; E11.9 Type 2 diabetes mellitus without complications; K21.9 Gastro-esophageal reflux disease without esophagitis; F41.9 Anxiety disorder, unspecified; F43.10 Post-traumatic stress disorder, unspecified; Z87.820 Personal history of traumatic brain injury; Z98.890 Other specified postprocedural states; Z88.0 Allergy status to penicillin; Z88.5 Allergy status to narcotic agent; Z88.6 Allergy status to analgesic agent; Z88.8 Allergy status to other drugs, medicaments and biological substances
CPT/HCPCS: 96372; 99284; J1100; J1200; J2360

== ENCOUNTER 2019-06-07 21:26 | Emergency (ER) | payer MEDICARE, MEDICAID ==
[2019-06-07 22:35] LABS: BARBITURATES POS (NEG); BENZODIAZEPINES POS (NEG); CANNABINOIDS NEG (NEG); COCAINE NEG (NEG); METHADONE NEG (NEG); OPIATES NEG (NEG); PHENCYCLIDINE NEG (NEG)
[2019-06-07 22:38] LABS: AMPHETAMINE/METHAMPHETAMINE NEG (NEG)
[2019-06-07] MEDS ORDERED: BUTALB/APAP/CAFEIN 50/325/40MG TABLET. PO ONE (23:00)
[2019-06-07] MEDS ORDERED: diphenhydrAMINE 50 MG/ML VIAL IM ONE (23:00)
[2019-06-07] MEDS ORDERED: ORPHENADRINE CITRATE 60 MG/2 ML VIAL. IM ONE (23:00)
[2019-06-07] MEDS ORDERED: DEXAMETHASONE SOD PHOS 20 MG/5 ML VIAL. IM ONE (23:00)
--- NOTE | 2019-06-07 23:14 | PHYS DOC ---
Past Medical History Past Medical History: Anxiety, Asthma, Diabetes-Type II, GERD, Migraines, UTI Additional Past Medical Histor: Personality disorder, TBI, Broken neck, PTSD Past Surgical History: Hysterectomy, Tonsillectomy Additional Past Surgical Histo: Brain surgery, oral surgery, T&A, vag lesion removed Alcohol Use: None Drug Use: None Adult General Chief Complaint Chief Complaint: HEADACHE HPI HPI Patient is a 33 year old Female who presents with patient has been here several times for migraine headaches. She states usually takes Topamax. States his headache started today. The last and she was here was on 31 May. She was given Fioricet, Decadron IM, Benadryl IM and orphenadrine IM in patient states that worked. Patient rates her pain 9 out of 10. She has no photophobia or vomit ing. She states she was nauseated. Review of Systems Review of Systems Neurologic: headache, denies focal weakness or sensory changes [] All other systems were reviewed and found to be within normal limits, except as documented in this note. Current Medications Current Medications Current Medications Medications (Trade) Dose Ordered Sig/Milagros Start Time Stop Time Status Last Admin Dose Admin Acetaminophen/ Butalbital/ Caffeine (Fioricet) 1 tab 1X ONCE 06/07/19 23:00 06/07/19 23:01 DC 06/07/19 22:57 1 TAB Dexamethasone Sodium Phosphate (Decadron) 20 mg 1X ONCE 06/07/19 23:00 06/07/19 23:01 DC 06/07/19 23:00 20 MG Diphenhydramine HCl (Benadryl) 50 mg 1X ONCE 06/07/19 23:00 06/07/19 23:01 DC 06/07/19 23:00 50 MG Orphenadrine Citrate (Norflex) 60 mg 1X ONCE 06/07/19 23:00 06/07/19 23:01 DC 06/07/19 23:00 60 MG Allergies Allergies Allergies Coded Allergies Type Severity Reaction Last Updated Verified trazodone Allergy Severe HIVES 05/29/19 Yes Penicillins Allergy Intermediate 12/09/17 Yes adhesive Allergy Intermediate 12/09/17 Yes ketorolac Allergy Intermediate 12/09/17 Yes metoclopramide Allergy Intermediate 12/09/17 Yes ondansetron Allergy Intermediate 12/09/17 Yes prochlorperazine Allergy Intermediate 12/09/17 Yes Physical Exam Physical Exam Constitutional: Well developed, well nourished, no acute distress, non-toxic appearance. [] HENT: Normocephalic, atraumatic, bilateral external ears normal, oropharynx moist, no oral exudates, nose normal. [] Eyes: PERRLA, EOMI, conjunctiva normal, no discharge. [] Neck: Normal range of motion, no tenderness, supple, no stridor. [] Cardiovascular:Heart rate regular rhythm, no murmur [] Lungs & Thorax: Bilateral breath sounds clear to auscultation [] Abdomen: Bowel sounds normal, soft, no tenderness, no masses, no pulsatile masses. [] Skin: Warm, dry, no erythema, no rash. [] Back: No tenderness, no CVA tenderness. [] Extremities: No tenderness, no cyanosis, no clubbing, ROM intact, no edema. [] Neurologic: Alert and oriented X 3, normal motor function, normal sensory function, no focal deficits noted. [] Psychologic: Affect normal, judgement normal, mood normal. Normal Physical Exam [] Current Patient Data Vital Signs Vital Signs Date Time Temp Pulse Resp B/P (MAP) Pulse Ox O2 Delivery O2 Flow Rate FiO2 06/07/19 21:30 97.9 110 16 148/96 (113) 100 Room Air 97.9 Lab Values Laboratory Tests Test 06/07/19 22:16 06/07/19 22:20 Urine Opiates Screen Neg (NEG) Urine Methadone Screen Neg (NEG) Urine Barbiturates Pos (NEG) Urine Phencyclidine Screen Neg (NEG) Urine Amphetamine/Methamphetamine Neg (NEG) Urine Benzodiazepines Screen Pos (NEG) Urine Cocaine Screen Neg (NEG) Urine Cannabinoids Screen Neg (NEG) Urine Ethyl Alcohol Neg (NEG) POC Urine HCG, Qualitative Hcg negative (Negative) EKG EKG [] Radiology/Procedures Radiology/Procedures [] Course & Med Decision Making Course & Med Decision Making Patient states nothing makes the headaches worse or better. She states is her normal headache is not any worse than usual. She states it is the front of her forehead and over to her right orthodox. She denies any visual changes, chest pain, shortness of air, dizziness, abdominal pain, fever, neck pain, back pain. Alert and oriented. Speaks in full clear sentences. PERRLA. Denies any numbness or tingling or weaknesses. Ambulatory with a steady gait. Patient is given Fioricet, and Decadron 20 mg IM, Benadryl 50 im and orphenadrine 60 mg IM states she is feeling better. She states she is right go home. Dragon Disclaimer Dragon Disclaimer This electronic medical record was generated, in whole or in part, using a voice recognition dictation system. Departure Departure Impression: Primary Impression: Migraine headache Disposition: HOME, SELF-CARE Condition: STABLE Referrals: SALINA DE ANDA (PCP) Patient Instructions: Migraine Headache, [id number] Additional Instructions: Follow-up with her primary care provider. Problem Qualifiers Primary Impression: Migraine headache Migraine type: unspecified Status migrainosus presence: without status migrainosus Intractability: not intractable Qualified Codes: G43.909 - M igraine, unspecified, not intractable, without status migrainosus QUITA SINGH [employer]PERATING ENGINEER Jun 07, 2019 23:14
[2019-06-07 23:32] VITALS: BP 148/84
== END 2019-06-07 23:32 | disposition home or self-care (01) ==
LOC: ER 21:26
DX: G43.909 Migraine, unspecified, not intractable, without status migrainosus (principal); F41.9 Anxiety disorder, unspecified; J45.909 Unspecified asthma, uncomplicated; E11.9 Type 2 diabetes mellitus without complications; K21.9 Gastro-esophageal reflux disease without esophagitis; F43.10 Post-traumatic stress disorder, unspecified; Z88.0 Allergy status to penicillin; Z88.5 Allergy status to narcotic agent; Z88.6 Allergy status to analgesic agent; Z88.8 Allergy status to other drugs, medicaments and biological substances
CPT/HCPCS: 80307; 81025; 96372; 99284; J1100; J1200; J2360

== ENCOUNTER 2019-06-25 20:55 | Emergency (ER) | payer MEDICARE, MEDICAID ==
[~2019-06-25] VITALS: Ht 167.6 cm; Wt 95.5 kg
[2019-06-25 21:10] VITALS: BP 142/112
--- NOTE | 2019-06-25 21:36 | PHYS DOC ---
Past Medical History Past Medical History: Anxiety, Asthma, Diabetes-Type II, GERD, Migraines, UTI Additional Past Medical Histor: Personality disorder, TBI, Broken neck, PTSD Past Surgical History: Hysterectomy, Tonsillectomy Additional Past Surgical Histo: Brain surgery, oral surgery, T&A, vag lesion removed Alcohol Use: None Drug Use: None Adult General Chief Complaint Chief Complaint: HEADACHE HPI HPI Patient is a 33 year old female with history of migraine headaches among other illnesses of presents to the ED today complaining of 8 out of 10 generalized migraine headache chronic in nature. Patient reports she was seen at [facility] yesterday for the same headache, she states the medicines they gave her did not assist with the pain. She has tried Phenergan and Advil evening with no relief. She is also complaining of nausea and vomiting. Denies any fever. She is requesting IM injections stating at [facility] they attempted to put IV with no success. Patient denies anything unusual about her migraine headache today. Review of Systems Review of Systems Constitutional: Denies fever or chills [] Eyes: Denies change in visual acuity, redness, or eye pain [] HENT: Denies nasal congestion or sore throat [] Respiratory: Denies cough or shortness of breath [] Cardiovascular: No additional information not addressed in HPI [] GI: Denies abdominal pain, nausea, vomiting, bloody stools or diarrhea [] : Denies dysuria or hematuria [] Musculoskeletal: Denies back pain or joint pain [] Integument: Denies rash or skin lesions [] Neurologic: Reports migraine headache, denies focal weakness or sensory changes [] All other systems were reviewed and found to be within normal limits, except as documented in this note. Current Medications Current Medications Current Medications Medications (Trade) Dose Ordered Sig/Milagros Start Time Stop Time Status Last Admin Dose Admin Diphenhydramine HCl (Benadryl) 25 mg 1X ONCE 06/25/19 22:00 06/25/19 22:01 06/25/19 21:35 25 MG Methylprednisolone Sodium Succinate (SOLU-Medrol 125MG VIAL) 125 mg 1X ONCE 06/25/19 22:00 06/25/19 22:01 06/25/19 21:35 125 MG Allergies Allergies Allergies Coded Allergies Type Severity Reaction Last Updated Verified trazodone Allergy Severe HIVES 05/29/19 Yes Penicillins Allergy Intermediate 12/09/17 Yes adhesive Allergy Intermediate 12/09/17 Yes ketorolac Allergy Intermediate 12/09/17 Yes metoclopramide Allergy Intermediate 12/09/17 Yes ondansetron Allergy Intermediate 12/09/17 Yes prochlorperazine Allergy Intermediate 12/09/17 Yes Physical Exam Physical Exam Constitutional: Well developed, well nourished, no acute distress, non-toxic appearance. [] HENT: Normocephalic, atraumatic, bilateral external ears normal, oropharynx moist, no oral exudates, nose normal. [] Eyes: PERRLA, EOMI, conjunctiva normal, no discharge. [] Neck: Normal range of motion, no tenderness, supple, no stridor. [] Cardiovascular:Heart rate regular rhythm, no murmur [] Lungs & Thorax: Bilateral breath sounds clear to auscultation [] Abdomen: Bowel sounds normal, soft, no tenderness, no masses, no pulsatile masses. [] Skin: Warm, dry, no erythema, no rash. [] Back: No tenderness, no CVA tenderness. [] Extremities: No tenderness, no cyanosis, no clubbing, ROM intact, no edema. [] Neurologic: Alert and oriented X 3, normal motor function, normal sensory function, no focal deficits noted. Cranial nerves II through XII intact Psychologic: Affect normal, judgement normal, mood normal. [] Current Patient Data Vital Signs Vital Signs Date Time Temp Pulse Resp B/P (MAP) Pulse Ox O2 Delivery O2 Flow Rate FiO2 06/25/19 21:10 99.2 105 16 142/112 (122) 98 Room Air 99.2 EKG EKG [] Radiology/Procedures Radiology/Procedures [] Course & Med Decision Making Course & Med Decision Making Pertinent Labs and Imaging studies reviewed. (See chart for details) This is a 33-year-old female patient with to this ED presenting with a chronic migraine headache. Patient is well known to this ED for her migraine headaches, she was seen at [facility] yesterday for the same headache, there is nothing unusual about her headache today. Given Solu-Medrol and Benadryl and discharged to home. Dragon Disclaimer Dragon Disclaimer This electronic medical record was generated, in whole or in part, using a voice recognition dictation system. Departure Departure Impression: Primary Impression: Migraine headache Disposition: 01 HOME, SELF-CARE Condition: STABLE Referrals: SALINA DE ANDA (PCP) Follow-up with your own doctor in 1-2 weeks Patient Instructions: Migraine Headache Additional Instructions: You were evaluated for a migraine headache, please follow-up with your own doctor in the course of this week. Scripts Promethazine Hcl (PROMETHAZINE HCL) 25 Mg Tablet 1 TAB PO PRN Q6HRS, #2 TAB Prov: CLAUDIA DOBBINS APRN 06/25/19 Problem Qualifiers Primary Impression: Migraine headache Migraine type: unspecified Status migrainosus presence: without status esvin rainosus Intractability: not intractable Qualified Codes: G43.909 - Migraine, unspecified, not intractable, without status migrainosus CLAUDIA DOBBINS APRN Jun 25, 2019 21:36
[2019-06-25] MEDS ORDERED: PROM25TA10 PO (21:39)
[2019-06-25] MEDS ORDERED: diphenhydrAMINE 50 MG/ML VIAL IM ONE (22:00)
[2019-06-25] MEDS ORDERED: methylPREDNISolone SOD SUCC PF 125 MG/2 ML VIAL. IM ONE (22:00)
== END 2019-06-25 21:41 | disposition home or self-care (01) ==
LOC: ER 20:55
DX: G43.909 Migraine, unspecified, not intractable, without status migrainosus (principal); J45.909 Unspecified asthma, uncomplicated; E11.9 Type 2 diabetes mellitus without complications; K21.9 Gastro-esophageal reflux disease without esophagitis; F41.9 Anxiety disorder, unspecified; Z95.1 Presence of aortocoronary bypass graft; Z87.820 Personal history of traumatic brain injury; Z88.0 Allergy status to penicillin; Z88.5 Allergy status to narcotic agent; Z88.6 Allergy status to analgesic agent; Z88.8 Allergy status to other drugs, medicaments and biological substances
CPT/HCPCS: 96372; 99284; J1200; J2930

== ENCOUNTER 2019-10-26 09:12 | Emergency (ER) | payer MEDICARE, MEDICAID ==
[~2019-10-26] VITALS: Ht 167.6 cm; Wt 86.4 kg
[2019-10-26 09:30] VITALS: BP 132/85
--- NOTE | 2019-10-26 10:24 | PHYS DOC ---
Past Medical History Past Medical History: Anxiety, Asthma, Diabetes-Type II, GERD, Migraines, UTI Additional Past Medical Histor: Personality disorder, TBI, Broken neck, PTSD Past Surgical History: Hysterectomy, Tonsillectomy Additional Past Surgical Histo: Brain surgery, oral surgery, T&A, vag lesion removed Smoking Status: Former Smoker Alcohol Use: None Drug Use: None General Adult EDM: Chief Complaint: EYE PROBLEMS HPI: HPI: Patient is a 34-year-old female with multiple medical problems who presents stating that she woke up this morning and her eyes were swollen shut. She has not had any trauma to the eyes or any drainage. She states they do not hurt or feel like there is something in them. She has not noticed any visual acuity changes. [] Review of Systems: Review of Systems: Constitutional: Denies fever or chills. [] Eyes: Per HPI [] HENT: Denies nasal congestion or sore throat. [] Respiratory: Denies cough or shortness of breath. [] Cardiovascular: Denies chest pain or edema. [] GI: Denies abdominal pain, nausea, vomiting, bloody stools or diarrhea. [] : Denies dysuria. [] Musculoskeletal: Denies back pain or joint pain. [] Integument: Denies rash. [] Neurologic: Denies headache, focal weakness or sensory changes. [] Endocrine: Denies polyuria or polydipsia. [] Lymphatic: Denies swollen glands. [] Psychiatric: Reports anxiety. [] Heart Score: Risk Factors: Risk Factors: DM, Current or recent (<one month) smoker, HTN, HLP, family history of CAD, obesity. Risk Scores: Score 0 - 3: 2.5% MACE over next 6 weeks - Discharge Home Score 4 - 6: 20.3% MACE over next 6 weeks - Admit for Clinical Observation Score 7 - 10: 72.7% MACE over next 6 weeks - Early Invasive Strategies Allergies: Allergies: Allergies Coded Allergies Type Severity Reaction Last Updated Verified trazodone Allergy Severe HIVES 05/29/19 Yes Penicillins Allergy Intermediate 12/09/17 Yes adhesive Allergy Intermediate 12/09/17 Yes ketorolac Allergy Intermediate 12/09/17 Yes metoclopramide Allergy Intermediate 12/09/17 Yes ondansetron Allergy Intermediate 12/09/17 Yes prochlorperazine Allergy Intermediate 12/09/17 Yes Physical Exam: PE: Constitutional: Well developed, well nourished, no distress but she seems overmedicated [] HENT: Normocephalic, atraumatic, bilateral external ears normal, oropharynx moist, no oral exudates, nose normal. [] Eyes: PERRLA, EOMI, conjunctiva normal, no discharge. There is no periorbital swelling that I can appreciate at all in either eye [] [] Skin: Warm, dry, no erythema, no rash. [] Back: No tenderness, no CVA tenderness. [] Extremities: No tenderness, no cyanosis, no clubbing, ROM intact, no edema. [] Neurologic: Alert and oriented X 3, normal motor function, normal sensory function, no focal deficits noted. [] Psychologic: Depressed [] EKG: EKG: [] Radiology/Procedures: Radiology/Procedures: [] Course & Med Decision Making: Course & Med Decision Making Pertinent Labs and Imaging studies reviewed. (See chart for details) [] Dragon Disclaimer: Dragon Disclaimer: This electronic medical record was generated, in whole or in part, using a voice recognition dictation system. Departure Departure Impression: Primary Impression: Periorbital swelling Disposition: HOME, SELF-CARE Condition: STABLE Referrals: SALINA DE ANDA (PCP) Patient Instructions: Artificial Tears eye solution Additional Instructions: Return to the emergency department with any new or concerning symptoms Justicifation of Admission Dx: Justifications for Admission: Justification of Admission Dx: JUAN DANIEL Hodges DO Oct 26, 2019 10:24
== END 2019-10-26 10:22 | disposition home or self-care (01) ==
LOC: ER 09:12
DX: H57.89 Other specified disorders of eye and adnexa (principal); R60.0 Localized edema; F41.8 Other specified anxiety disorders; F41.9 Anxiety disorder, unspecified; J45.909 Unspecified asthma, uncomplicated; K21.9 Gastro-esophageal reflux disease without esophagitis; E11.9 Type 2 diabetes mellitus without complications; G43.909 Migraine, unspecified, not intractable, without status migrainosus; Z87.820 Personal history of traumatic brain injury; Z90.710 Acquired absence of both cervix and uterus; Z90.89 Acquired absence of other organs; Z98.890 Other specified postprocedural states; Z87.891 Personal history of nicotine dependence; Z88.0 Allergy status to penicillin; Z88.8 Allergy status to other drugs, medicaments and biological substances; Z88.5 Allergy status to narcotic agent; Z88.6 Allergy status to analgesic agent
CPT/HCPCS: 99281

== ENCOUNTER 2019-11-01 05:51 | Emergency (ER) | payer MEDICARE, MEDICAID ==
[~2019-11-01] VITALS: Ht 167.6 cm; Wt 83.0 kg
[2019-11-01 06:04] VITALS: BP 126/79
--- NOTE | 2019-11-01 06:08 | PHYS DOC ---
Past Medical History Past Medical History: Anxiety, Asthma, Diabetes-Type II, GERD, Migraines, UTI Additional Past Medical Histor: Personality disorder, TBI, Broken neck, PTSD Past Surgical History: Hysterectomy, Tonsillectomy Additional Past Surgical Histo: Brain surgery, oral surgery, T&A, vag lesion removed Smoking Status: Former Smoker Alcohol Use: None Drug Use: None General Adult EDM: Chief Complaint: LOWER EXT PAIN HPI: HPI: 34F p/w atraumatic left > right anterior thigh pain of onset around 2AM this morning. Pain is dull with occasional sharp shooting pain, worse when standing or sitting down. No home meds taken for Sx relief. No prior similar episodes. No prior Hx sciatica. No back pain. Review of Systems: Review of Systems: Gen: No fever, chills. Eyes: No blurred vision, diplopia. ENT: No nasal congestion, sore throat. CV: No CP, palpitations. Resp. No SOB, cough. GI: No abd pain, N/V. : No dysuria, hematuria. Neuro: No THACKER, dizziness, weakness. MSK: No arthralgia, back pain. Reports myalgia. Skin: No acute rash or lesion. Heart Score: Risk Factors: Risk Factors: DM, Current or recent (<one month) smoker, HTN, HLP, family history of CAD, obesity. Risk Scores: Score 0 - 3: 2.5% MACE over next 6 weeks - Discharge Home Score 4 - 6: 20.3% MACE over next 6 weeks - Admit for Clinical Observation Score 7 - 10: 72.7% MACE over next 6 weeks - Early Invasive Strategies Allergies: Allergies: Allergies Coded Allergies Type Severity Reaction Last Updated Verified trazodone Allergy Severe HIVES 05/29/19 Yes Penicillins Allergy Intermediate 12/09/17 Yes adhesive Allergy Intermediate 12/09/17 Yes ketorolac Allergy Intermediate 12/09/17 Yes metoclopramide Allergy Intermediate 12/09/17 Yes ondansetron Allergy Intermediate 12/09/17 Yes prochlorperazine Allergy Intermediate 12/09/17 Yes Physical Exam: PE: Gen: NAD. Well nourished. Head: NC/AT. Eyes: No scleral icterus. No conjunctival injection. ENT: MMM. Posterior OP clear. Neck: Supple. CV: RRR. Peripheral pulses intact. Resp: CTAB. Abd: Soft. NT. ND. MSK: No peripheral cyanosis. No edema. Mild TTP without overlying skin changes of the BL anterior thighs. Back: No midline spinal TTP or stepoffs. Neuro: A&Ox3. Strength & sensation grossly intact throughout. Skin. Warm. Dry. Psych: Appropriate mood & affect. EKG: EKG: [] Radiology/Procedures: Radiology/Procedures: PROCEDURE: CT LUMBAR SPINE WO CONTRAST INDICATION: Reason: Radiating LLE > RLE pain / Spl. Instructions: / History: COMPARISON: CT March 2019 TECHNIQUE: Axial CT images obtained through the lumbar spine. One or more of the following individualized dose reduction techniques were utilized for this examination: 1. Automated exposure control; 2. Adjustment of the mA and/or kV according to patient size; 3. Use of iterative reconstruction technique. FINDINGS: No evidence of acute fracture or dislocation. Mild scoliotic curvature. Disc protrusion L3-4 as well as facet and ligamentum flavum hypertrophy with mild central canal stenosis and mild bilateral neural foraminal stenosis. At L4-5 there is mild broad-based posterior disc protrusion. Facet and ligamentum flavum hypertrophy. Central canal is patent. Mild narrowing of the inferior aspect of the neural foramina bilaterally without evidence of impingement. Facet hypertrophy at L5-S1 with epidural lipomatosis at this level. Mild bilateral neural foraminal stenosis. Partially visualized urinary bladder appears distended at time of exam. IMPRESSION: * Mild degenerative changes of the lumbar spine without acute fracture or dislocation. * Urinary bladder is partially seen and appears distended at time of exam. Could be secondary to the patient not urinating recently unless there are symptoms of bladder outlet obstruction. Electronically signed by: Tramaine Wan MD (11/01/2019 6:51 AM) [id number] Course & Med Decision Making: Course & Med Decision Making Pertinent Labs and Imaging studies reviewed. (See chart for details) In summary, 34F p/w atraumatic BL radiating anterior thigh pain L > R. No back pain. No clinical S/Sx concerning for cauda equina or tethered cord. CTLS obtained, showing degen changes including mild spinal stenosis/neuroforaminal stenosis and DDD. Remains well appearing and nontoxic. Suspecting radicular pain vs primary MSK pain. Was anticipating discharge with Rx flexeril, though patient was found to have eloped from the ED prior to my discussion of CT results and disposition. Kary Disclaimer: Kary Disclaimer: This electronic medical record was generated, in whole or in part, using a voice recognition dictation system. Departure Departure Impression: Primary Impression: Thigh pain Disposition: 01 HOME, SELF-CARE Condition: IMPROVED Referrals: SALINA DE ANDA (PCP) Patient Instructions: Myalgia, Adult, Radicular Pain Scripts Cyclobenzaprine Hcl (CYCLOBENZAPRINE HCL) 10 Mg Tablet 1 TAB PO TID, #30 TAB Prov: THEE REYES DO 11/01/19 Justicifation of Admission Dx: Justifications for Admission: Justification of Admission Dx: N/A THEE REYES DO Nov 01, 2019 06:08
[2019-11-01] MEDS ORDERED: CYCLOBENZAPRINE 10 MG TABLET. PO ONE (06:15)
--- NOTE | 2019-11-01 06:54 | RAD ---
INDICATION: Reason: Radiating LLE > RLE pain / Spl. Instructions: / History: COMPARISON: CT March 2019 TECHNIQUE: Axial CT images obtained through the lumbar spine. One or more of the following individualized dose reduction techniques were utilized for this examination: 1. Automated exposure control; 2. Adjustment of the mA and/or kV according to patient size; 3. Use of iterative reconstruction technique. FINDINGS: No evidence of acute fracture or dislocation. Mild scoliotic curvature. Disc protrusion L3-4 as well as facet and ligamentum flavum hypertrophy with mild central canal stenosis and mild bilateral neural foraminal stenosis. At L4-5 there is mild broad-based posterior disc protrusion. Facet and ligamentum flavum hypertrophy. Central canal is patent. Mild narrowing of the inferior aspect of the neural foramina bilaterally without evidence of impingement. Facet hypertrophy at L5-S1 with epidural lipomatosis at this level. Mild bilateral neural foraminal stenosis. Partially visualized urinary bladder appears distended at time of exam. IMPRESSION: * Mild degenerative changes of the lumbar spine without acute fracture or dislocation. * Urinary bladder is partially seen and appears distended at time of exam. Could be secondary to the patient not urinating recently unless there are symptoms of bladder outlet obstruction. Electronically signed by: Tramaine Wan MD (11/01/2019 6:51 AM) [id number]
[2019-11-01] MEDS ORDERED: CYCL10TA2 PO (07:01)
== END 2019-11-01 07:15 | disposition home or self-care (01) ==
LOC: ER 05:51
DX: M79.652 Pain in left thigh (principal); M79.651 Pain in right thigh; J45.909 Unspecified asthma, uncomplicated; E11.9 Type 2 diabetes mellitus without complications; K21.9 Gastro-esophageal reflux disease without esophagitis; G43.909 Migraine, unspecified, not intractable, without status migrainosus; Z87.891 Personal history of nicotine dependence; Z90.710 Acquired absence of both cervix and uterus; Z87.820 Personal history of traumatic brain injury; Z88.0 Allergy status to penicillin; Z88.5 Allergy status to narcotic agent; Z88.6 Allergy status to analgesic agent; Z88.8 Allergy status to other drugs, medicaments and biological substances
CPT/HCPCS: 72131; 99284